=== PATIENT | male | born 2000 | race Caucasian/White ===

== ENCOUNTER 2022-10-03 11:58 | Inpatient (IN) ==
--- NOTE | 2022-10-03 12:46 | Emergency Department Note ---
Impression & Plan Depression, Self-harming behavior ED Provider Note Provider: Sanjeev Ortega MD DATE OF SERVICE: 10/03/2022 CHIEF COMPLAINT: Cutting, depression HISTORY OF PRESENT ILLNESS: Patient is a 22-year-old gentleman presenting here today for evaluation of depression and self-harm. Patient with a distant history when he was a teenager of ADHD or ADD in counseling until 15. No prior suicide attempts. Evidently has been under increased stress and a polyamorous relationship and there is some tension with his fiance who feels she is trapped as he is very dependent on him. He states he feels depressed and maybe a little anxious. Denies when to harm others. 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 Denies really wanting to harm himself. His male partner Renetta frederick received a message from him when he is working about this and talked him down according to him. Did contact the police and suicide hotline last night. Renetta some to come here for evaluation today. Not sleeping the best he is in the associate light. Denies drug or alcohol issues. 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 NECK: Trachea midline. ENT: Mucous membranes pink and moist. LUNGS: Airway patent. No retractions or tachypnea SKIN: Acyanotic, warm, dry EXTREMITIES: Without swelling, tenderness or deformity except for approximately 20 linear striations in the posterior aspect of the left forearm superficial in nature without any foreign body or significant bleeding or redness. Soft compartment. Intact distal gross sensation of the left hand. NEUROLOGICAL: No focal deficits. No aphasia. No facial droop or slurred speech. Ambulatory. Psych: Some flattened affect. Poor eye contact. Relays depression. Denies any plan but does not really want to be around. Denies any wishes to harm others or hallucinations. Not responding to external stimuli. Patient's laboratory studies reviewed. Differential includes Mood disorder, infection, hypoglycemia, electrolyte abnormalities, cardiac sources, intracerebral event, toxicologic, trauma, neurologic, as well as other pathologies. IMPRESSION/MEDICAL DECISION MAKING: Patient not currently in outpatient treatment outpatient meds with depression issues. Evidently last night utilize a pocket knife to make some superficial cuts on his left forearm. Tetanus is up-to-date according him. No evidence of infection. No evidence compartment syndrome. No significant depth and does not require closure. Basic blood work obtained here. Seen with case management. Denies any HI or hallucinations. Feels very depressed. Not necessarily see a plan or involuntary grounds but case management discussion with him he wished to pursue voluntary placement for his symptoms. No history of cutting reported. Denies taking thing else to harm himself. Case management made referrals for inpatient treatment to [address] [place] [address] here. DIAGNOSIS: Depression, self-harm DISPOSITION: Signed out pending evaluation of [facility]. for possible voluntary inpatient treatment but do not see any involuntary grounds and if declined could consider safety planning for discharge. Dr. Matamoros aware. Past Med/Surg History Medical History No acute medical problems Surgical History No significant past surgical history Family History Other No significant family history Social History Smoking Status: Never smoker Tobacco Type: Cigarettes Hx Alcohol Use: No Preferred Language: Zambian Feels Safe at Home: Yes Gender Identity: Male Allergies Allergies Allergy/AdvReac Type Severity Reaction Status Date / Time No Known Allergies Allergy Verified 04/14/22 02:39 Home Meds Home Medications Medication Instructions Recorded Confirmed No Known Home Medications 04/14/22 10/03/22 Results & Data (ED) Vital Signs Vital Signs - 24 hr 10/03/22 12:02 10/03/22 15:45 Temperature 36.4 C L Temperature Source Temporal Artery Scan Pulse Rate 73 Pulse Rate [Right Finger] 76 Pulse Rhythm Regular Pulse Rhythm [Right Finger] Regular Pulse Strength Normal Pulse Strength [Right Finger] Normal Respiratory Rate 20 18 Respiratory Effort / Characteristics Non-Labored Spontaneous Non-Labored Respiratory Depth Normal Normal Respiratory Pattern Regular Regular Blood Pressure 134/93 Blood Pressure [Right Arm] 128/86 Blood Pressure Mean 106 Blood Pressure Mean [Right Arm] 100 Blood Pressure Position Sitting Blood Pressure Position [Right Arm] Lying Pulse Oximetry 100 100 Oxygen Delivery Method Room Air Room Air Sepsis Recent Fever Within 48 Hours No Sepsis New/Unexplained Change in Mental Status No Sepsis Action Taken by Nursing No Action Required Laboratory Data 10/03/22 12:30 10/03/22 12:30 Lab Results 10/03/22 10/03/22 10/03/22 Range/Units 12:30 12:30 12:30 WBC Cancelled RBC Cancelled Hgb Cancelled Hct Cancelled MCV Cancelled MCH Cancelled MCHC Cancelled RDW Std Deviation Cancelled RDW Coeff of Florentin Cancelled Plt Count Cancelled MPV Cancelled Immature Gran % (Auto) Cancelled Neut % (Auto) Cancelled Lymph % (Auto) Cancelled Johnston % (Auto) Cancelled Eos % (Auto) Cancelled Baso % (Auto) Cancelled Neut # (Auto) Cancelled Lymph # (Auto) Cancelled Johnston # (Auto) Cancelled Eos # (Auto) Cancelled Baso # (Auto) Cancelled Immature Gran # (Auto) Cancelled Absolute Nucleated RBC Cancelled Nucleated RBC % (auto) Cancelled Neutrophils % (Manual) Cancelled Band Neutrophils % Cancelled Lymphocytes % (Manual) Cancelled Prolymphocyte % Cancelled Reactive Lymphs % (Man) Cancelled Monocytes % (Manual) Cancelled Eosinophils % (Manual) Cancelled Basophils % (Manual) Cancelled Metamyelocytes % (Man) Cancelled Myelocytes % (Man) Cancelled Promyelocytes % (Man) Cancelled Blast Cells % (Manual) Cancelled Plasma Cell % (Manual) Cancelled Other Cells % Cancelled Nucleated RBC % Cancelled Neutrophils # (Manual) Cancelled Band Neutrophils # Cancelled Total Absolute Neuts Cancelled Lymphocytes # (Manual) Cancelled Prolymphocyte # Cancelled Reactive Lymphs # Cancelled Total Abs Lymphocytes Cancelled Monocytes # (Manual) Cancelled Eosinophils # (Manual) Cancelled Basophils # (Manual) Cancelled Metamyelocytes # (Man) Cancelled Myelocytes # (Manual) Cancelled Promyelocytes # (Man) Cancelled Blast Cells # (Man) Cancelled Plasma Cell # (Manual) Cancelled Other Cells # Cancelled Nucleated RBCs # (Man) Cancelled Hypersegmented Neuts Cancelled Hyposegmented Neuts Cancelled Hypogranular Neuts Cancelled Large Granular Lymphs Cancelled # Lrg Granular Lymphs Cancelled Hairy Cells Cancelled Smudge Cells Cancelled Toxic Granulation Cancelled Toxic Vacuolation Cancelled Dohle Bodies Cancelled Juice Rods Cancelled Platelet Estimate Cancelled Hypogranular Platelets Cancelled Giant Platelets Cancelled Platelet Satelliting Cancelled RBC Morphology Cancelled Polychromasia Cancelled Hypochromasia Cancelled Poikilocytosis Cancelled Basophilic Stippling Cancelled Anisocytosis Cancelled Microcytosis Cancelled Macrocytosis Cancelled Spherocytes Cancelled Pappenheimer Bodies Cancelled Sickle Cells Cancelled Target Cells Cancelled Tear Drop Cells Cancelled Ovalocytes Cancelled Stomatocytes Cancelled Penaloza-Modale Bodies Cancelled Echinocytes Cancelled Acanthocytes (Spur) Cancelled Rouleaux Cancelled RBC Agglutinates Cancelled Schistocytes Cancelled Sezary Cell Cancelled Sodium 138 (136-145) mmol/L Potassium 4.3 (3.5-5.1) mmol/L Chloride 102 (98-107) mmol/L Carbon Dioxide 29 (21-32) mmol/L Anion Gap 7 (3-11) BUN 18 (6-23) mg/dl Creatinine 1.32 (0.6-1.4) mg/dl Est Cr Clr Drug Dosing 91.0 ml/min Est GFR ( Amer) 87.5 ml/min Est GFR (Non-Af Amer) 75.5 ml/min BUN/Creatinine Ratio 13.6 (10-20) Glucose 67 L (70-99(Fasting)) mg/dl Calcium 9.4 (8.6-10.3) mg/dl Total Bilirubin 1.4 H (0.2-1.0) mg/dl AST 24 (13-39) U/L ALT 24 (7-52) U/L Alkaline Phosphatase 54 (34-104) U/L Total Protein 7.9 (6.0-8.3) gm/dl Albumin 4.8 (3.4-5.0) gm/dl Globulin 3.1 (2.5-4.0) gm/dl Albumin/Globulin Ratio 1.5 (0.9-2) TSH 8.114 H (0.300-4.500) uIu/ml Free T4 0.90 (0.61-1.60) ng/dl Urine Color Urine Appearance (Clear) Urine pH (4.5-7.5) Ur Specific Monroe (1.000-1.030) Urine Protein (Negative) Urine Glucose (UA) (Negative) Urine Ketones (Negative) Urine Blood (Negative) Urine Nitrite (Negative) Urine Bilirubin (Negative) Urine Urobilinogen (Negative) Ur Leukocyte Esterase (Negative) Salicylates (3.0-30) mg/dl Urine Opiates Screen (Neg) Ur Methadone, Qual (Neg) Acetaminophen (10-30) ug/ml Urine Barbiturates (Neg) Ur Phencyclidine (PCP) (Neg) U Amphetamin/Meth Scrn (Neg) MDMA (Ecstasy) Screen (Neg) U Benzodiazepines Scrn (Neg) Ur Cocaine Metabolite (Neg) U Marijuana (THC) Screen (Neg) Ethyl Alcohol mg/dL (<10.0) mg/dl SARS-CoV-2, RNA, NAAT (NEGATIVE) Blood Parasites ID Cancelled 10/03/22 10/03/22 10/03/22 Range/Units 12:30 12:30 12:33 WBC RBC Hgb Hct MCV MCH MCHC RDW Std Deviation RDW Coeff of Florentin Plt Count MPV Immature Gran % (Auto) Neut % (Auto) Lymph % (Auto) Johnston % (Auto) Eos % (Auto) Baso % (Auto) Neut # (Auto) Lymph # (Auto) Johnston # (Auto) Eos # (Auto) Baso # (Auto) Immature Gran # (Auto) Absolute Nucleated RBC Nucleated RBC % (auto) Neutrophils % (Manual) Band Neutrophils % Lymphocytes % (Manual) Prolymphocyte % Reactive Lymphs % (Man) Monocytes % (Manual) Eosinophils % (Manual) Basophils % (Manual) Metamyelocytes % (Man) Myelocytes % (Man) Promyelocytes % (Man) Blast Cells % (Manual) Plasma Cell % (Manual) Other Cells % Nucleated RBC % Neutrophils # (Manual) Band Neutrophils # Total Absolute Neuts Lymphocytes # (Manual) Prolymphocyte # Reactive Lymphs # Total Abs Lymphocytes Monocytes # (Manual) Eosinophils # (Manual) Basophils # (Manual) Metamyelocytes # (Man) Myelocytes # (Manual) Promyelocytes # (Man) Blast Cells # (Man) Plasma Cell # (Manual) Other Cells # Nucleated RBCs # (Man) Hypersegmented Neuts Hyposegmented Neuts Hypogranular Neuts Large Granular Lymphs # Lrg Granular Lymphs Hairy Cells Smudge Cells Toxic Granulation Toxic Vacuolation Dohle Bodies Juice Rods Platelet Estimate Hypogranular Platelets Giant Platelets Platelet Satelliting RBC Morphology Polychromasia Hypochromasia Poikilocytosis Basophilic Stippling Anisocytosis Microcytosis Macrocytosis Spherocytes Pappenheimer Bodies Sickle Cells Target Cells Tear Drop Cells Ovalocytes Stomatocytes Penaloza-Modale Bodies Echinocytes Acanthocytes (Spur) Rouleaux RBC Agglutinates Schistocytes Sezary Cell Sodium (136-145) mmol/L Potassium (3.5-5.1) mmol/L Chloride (98-107) mmol/L Carbon Dioxide (21-32) mmol/L Anion Gap (3-11) BUN (6-23) mg/dl Creatinine (0.6-1.4) mg/dl Est Cr Clr Drug Dosing ml/min Est GFR ( Amer) ml/min Est GFR (Non-Af Amer) ml/min BUN/Creatinine Ratio (10-20) Glucose (70-99(Fasting)) mg/dl Calcium (8.6-10.3) mg/dl Total Bilirubin (0.2-1.0) mg/dl AST (13-39) U/L ALT (7-52) U/L Alkaline Phosphatase (34-104) U/L Total Protein (6.0-8.3) gm/dl Albumin (3.4-5.0) gm/dl Globulin (2.5-4.0) gm/dl Albumin/Globulin Ratio (0.9-2) TSH (0.300-4.500) uIu/ml Free T4 (0.61-1.60) ng/dl Urine Color Urine Appearance (Clear) Urine pH (4.5-7.5) Ur Specific Monroe (1.000-1.030) Urine Protein (Negative) Urine Glucose (UA) (Negative) Urine Ketones (Negative) Urine Blood (Negative) Urine Nitrite (Negative) Urine Bilirubin (Negative) Urine Urobilinogen (Negative) Ur Leukocyte Esterase (Negative) Salicylates < 3.0 L (3.0-30) mg/dl Urine Opiates Screen (Neg) Ur Methadone, Qual (Neg) Acetaminophen < 3 L (10-30) ug/ml Urine Barbiturates (Neg) Ur Phencyclidine (PCP) (Neg) U Amphetamin/Meth Scrn (Neg) MDMA (Ecstasy) Screen (Neg) U Benzodiazepines Scrn (Neg) Ur Cocaine Metabolite (Neg) U Marijuana (THC) Screen (Neg) Ethyl Alcohol mg/dL < 10.0 (<10.0) mg/dl SARS-CoV-2, RNA, NAAT NEGATIVE (NEGATIVE) Blood Parasites ID 10/03/22 10/03/22 10/03/22 Range/Units 14:04 Unknown Unknown WBC 7.84 RBC 5.67 Hgb 16.8 Hct 48.1 MCV 84.8 MCH 29.6 MCHC 34.9 RDW Std Deviation 36.7 RDW Coeff of Florentin 12.1 Plt Count 196 MPV 11.6 Immature Gran % (Auto) 0.8 Neut % (Auto) 63.2 Lymph % (Auto) 26.5 Johnston % (Auto) 7.7 Eos % (Auto) 1.4 Baso % (Auto) 0.4 Neut # (Auto) 4.96 Lymph # (Auto) 2.08 Johnston # (Auto) 0.60 H Eos # (Auto) 0.11 Baso # (Auto) 0.03 Immature Gran # (Auto) 0.06 Absolute Nucleated RBC Nucleated RBC % (auto) Neutrophils % (Manual) Band Neutrophils % Lymphocytes % (Manual) Prolymphocyte % Reactive Lymphs % (Man) Monocytes % (Manual) Eosinophils % (Manual) Basophils % (Manual) Metamyelocytes % (Man) Myelocytes % (Man) Promyelocytes % (Man) Blast Cells % (Manual) Plasma Cell % (Manual) Other Cells % Nucleated RBC % Neutrophils # (Manual) Band Neutrophils # Total Absolute Neuts Lymphocytes # (Manual) Prolymphocyte # Reactive Lymphs # Total Abs Lymphocytes Monocytes # (Manual) Eosinophils # (Manual) Basophils # (Manual) Metamyelocytes # (Man) Myelocytes # (Manual) Promyelocytes # (Man) Blast Cells # (Man) Plasma Cell # (Manual) Other Cells # Nucleated RBCs # (Man) Hypersegmented Neuts Hyposegmented Neuts Hypogranular Neuts Large Granular Lymphs # Lrg Granular Lymphs Hairy Cells Smudge Cells Toxic Granulation Toxic Vacuolation Dohle Bodies Juice Rods Platelet Estimate Hypogranular Platelets Giant Platelets Platelet Satelliting RBC Morphology Polychromasia Hypochromasia Poikilocytosis Basophilic Stippling Anisocytosis Microcytosis Macrocytosis Spherocytes Pappenheimer Bodies Sickle Cells Target Cells Tear Drop Cells Ovalocytes Stomatocytes Penaloza-Modale Bodies Echinocytes Acanthocytes (Spur) Rouleaux RBC Agglutinates Schistocytes Sezary Cell Sodium (136-145) mmol/L Potassium (3.5-5.1) mmol/L Chloride (98-107) mmol/L Carbon Dioxide (21-32) mmol/L Anion Gap (3-11) BUN (6-23) mg/dl Creatinine (0.6-1.4) mg/dl Est Cr Clr Drug Dosing ml/min Est GFR ( Amer) ml/min Est GFR (Non-Af Amer) ml/min BUN/Creatinine Ratio (10-20) Glucose (70-99(Fasting)) mg/dl Calcium (8.6-10.3) mg/dl Total Bilirubin (0.2-1.0) mg/dl AST (13-39) U/L ALT (7-52) U/L Alkaline Phosphatase (34-104) U/L Total Protein (6.0-8.3) gm/dl Albumin (3.4-5.0) gm/dl Globulin (2.5-4.0) gm/dl Albumin/Globulin Ratio (0.9-2) TSH (0.300-4.500) uIu/ml Free T4 (0.61-1.60) ng/dl Urine Color Dark Yellow Urine Appearance Clear (Clear) Urine pH 6.0 (4.5-7.5) Ur Specific Monroe 1.025 (1.000-1.030) Urine Protein Negative (Negative) Urine Glucose (UA) Negative (Negative) Urine Ketones Trace H (Negative) Urine Blood Negative (Negative) Urine Nitrite Negative (Negative) Urine Bilirubin Negative (Negative) Urine Urobilinogen Negative (Negative) Ur Leukocyte Esterase Negative (Negative) Salicylates (3.0-30) mg/dl Urine Opiates Screen Neg (Neg) Ur Methadone, Qual Neg (Neg) Acetaminophen (10-30) ug/ml Urine Barbiturates Neg (Neg) Ur Phencyclidine (PCP) Neg (Neg) U Amphetamin/Meth Scrn Neg (Neg) MDMA (Ecstasy) Screen Neg (Neg) U Benzodiazepines Scrn Neg (Neg) Ur Cocaine Metabolite Neg (Neg) U Marijuana (THC) Screen Neg (Neg) Ethyl Alcohol mg/dL (<10.0) mg/dl SARS-CoV-2, RNA, NAAT (NEGATIVE) Blood Parasites ID Discharge Plan Visit Data Chief Complaint: Mental Health Evaluation Stated Complaint: MENTAL ISSUES, SELF HARM ED Provider: Josh Matamoros Discharge Problem: Depression, Self-harming behavior Forms Stand Alone Forms: [facility], Suicide Prevention Resources Prescriptions Prescriptions: No Action No Known Home Medications Referrals Referrals: PCP,NO [Primary Care Provider] -
[2022-10-03 13:11] LABS: Albumin Level 4.8 gm/dl (3.4-5.0); Bilirubin,Total 1.4 mg/dl (0.2-1.0); Calcium 9.4 mg/dl (8.6-10.3); Potassium 4.3 mmol/L (3.5-5.1)
[2022-10-03 13:17] LABS: Acetaminophen < 3 ug/ml (10-30); Albumin Globulin Ratio 1.5 (0.9-2); BUN Creatinine Ratio 13.6 (10-20); Est GFR (African American) 87.5 ml/min; Est GFR (Non-African American) 75.5 ml/min; Globulin 3.1 gm/dl (2.5-4.0); Salicylate < 3.0 mg/dl (3.0-30); Total Protein 7.9 gm/dl (6.0-8.3)
[2022-10-03 13:30] LABS: Thyroid Stimulating Hormone 8.114 uIu/ml (0.300-4.500)
[2022-10-03 14:11] LABS: T4 Free Thyroxine 0.9 ng/dl (0.61-1.60)
[2022-10-03 14:32] LABS: Basophils # (auto) 0.03 K/uL (0-0.2); Basophils % (auto) 0.4 %; Eosinophils # (auto) 0.11 K/uL (0-0.50); Eosinophils % (auto) 1.4 %; Hematocrit (blood only) 48.1 % (42.0-52.0); Hemoglobin 16.8 g/dl (14.0-18.0); Immature Granulocytes # (auto) 0.06 K/uL (0.01-0.20); Immature Granulocytes % (auto) 0.8 %; Lymphocytes # (auto) 2.08 K/uL (1.2-3.4); Lymphocytes % (auto) 26.5 %; Mean Corpuscular Hemoglobin 29.6 pg (25.0-34.0); Mean Corpuscular Hgb Conc 34.9 g/dL (32.0-36.0); Mean Corpuscular Volume 84.8 fL (80.0-100.0); Mean Platelet Volume 11.6 fL (9.4-12.4); Monocytes % (auto) 7.7 %; Neutrophils # (auto) 4.96 K/uL (1.40-6.50); Neutrophils % (auto) 63.2 %; Platelet Count 196 K/uL (130-400); RDW Coefficient of Variation 12.1 % (11.5-14.5); RDW Standard Deviation 36.7 fL (36.4-46.3); Red Blood Count 5.67 M/uL (4.70-6.10); White Blood Count 7.84 K/ul (4.8-10.8)
[2022-10-03 14:54] LABS: Appearance Urine Clear (Clear); Bilirubin Urine Negative (Negative); Blood Urine Negative (Negative); Color Urine Dark Yellow; Glucose Urine UA Negative (Negative); Ketones Urine Trace (Negative); Leukocyte Esterase Urine Negative (Negative); Nitrite Urine Negative (Negative); Protein Urine Negative (Negative); Specific Gravity Urine 1.025 (1.000-1.030); Urobilinogen Urine Negative (Negative)
[2022-10-03 16:40] LABS: Amphetamines+Metham, Urine Neg (Neg); Barbiturates, Urine Neg (Neg); Benzodiazepine, Urine Neg (Neg); Cocaine, Urine Neg (Neg); MDMA (Ecstacy), Urine Neg (Neg); Methadone, Urine Neg (Neg); Opiate, Urine Neg (Neg); Phencyclidine, Urine Neg (Neg)
--- NOTE | 2022-10-03 17:08 | Emergency Department Note ---
ED Visit Note I did receive signout from Dr. Ortega. The patient does present with depressed mood as well as superficial cutting to the upper extremity. Initially no current safety concerns and a voluntary 201. Patient is medically cleared referral pending. Patient was accepted for inpatient treatment. .
[2022-10-03] MEDS ORDERED: BISMUTH SUBSALICYLATE LIQD 236 ML PO PRN (19:09)
[2022-10-03] MEDS ORDERED: hydrOXYzine HCl 25 MG TAB PO PRN ×2 (19:09)
[2022-10-03] MEDS ORDERED: ALUMINUM/MAGNESIUM SUSP 30 ML UDC PO PRN (19:09)
[2022-10-03] MEDS ORDERED: MAGNESIUM HYDROXIDE SUSP 30 ML UDC PO PRN (19:09)
[2022-10-03] MEDS ORDERED: SODIUM CHLORIDE 0.65% NA SOLN 45 ML (OCEAN) PRN (19:09)
[2022-10-03] MEDS ORDERED: ACETAMINOPHEN 325 MG TAB PO PRN (19:09)
--- NOTE | 2022-10-04 11:43 | History & Physical ---
Date of Service October 04, 2022 Impression / Recommendations Impression 22 yo male with childhood hx of ADHD and autism traits presents with increase in depressive symptoms, intermittent SI, and recent self-harm via cutting. (1) Depression: Plan The patient was admitted to the [facility] ([facility] mental health unit) on q15 min checks (behavioral with suicide precautions) for safety. The patient will participate in group, recreational, and milieu therapies and will be offered additional individual and family sessions as clinically appropriate. I do not recall him being on any antidepressants in the past, I suspect he took clonidine or trazodone for sleep, regardless no meds for several years. He is most interested in medication to regulate sleep and will be scheduled Vistaril 50 mg this hs with prn. 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 Chief Complaint "Well I get lonely, I cut myself, and at work I'd just had it". History of Present Illness Gurdeep was actually my outpatient for a significant number of years at [facility], last seen probably 2016. Since that time he has completed high school, been working at [employer] and for past year living with his fiance and her mother. He also reported to the ED that the couple is in a polyamorous relationship but today was more on her excessive work hours. He's been feeling more depressed for at least a few weeks. He intermittently engages in cutting to relieve stress when upset. He denies that the approximately 20 superficial cuts on the back of his left forearm were related to SI or an attempt. The cutting occured on 10/02/22 and then he went to work the following night. 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 A friend took him to the ED following his shift. He was admitted for safety and monitoring. He is interested in starting treatment and getting insurance. 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 Generally eats 1 meal a day at work as "it's free" and doesn't always feel comfortable taking food at fiance's house. Concentration seems baseline. Past Psychiatric History Current Psychiatric Diagnosis: aspergers, ADHD Outpatient Services: [facility] and [facility] as a minor Previous Psych Admissions: none Do You Have Access To A Gun?: No History of Previous Suicide Attempt: No Past Medication Trials: Concerta, possible sleep med Allergies Allergy/AdvReac Type Severity Reaction Status Date / Time No Known Allergies Allergy Verified 04/14/22 02:39 Home Medications Medication Instructions Recorded Confirmed Type No Known Home Medications 04/14/22 10/03/22 History Family History Family History of: None Family Mental Health History Comment: states brother is depressed but he does not have a diagnosis Alcohol History Hx of Alcohol Use Over the Past 12 Months: Yes (Occasionally) AUDIT Total Score: 2 Smoking Use Have You Smoked or Used Tobacco Products in the Last 30 Days: Yes tobacco type: cigarettes and smokeless tobacco Smoking Status: Light tobacco smoker Substance History Hx of Prescription Med Misuse Over the Past 12 Months: No Hx of Over the Counter Med Misuse Over the Past 12 Months: No Hx of Inhalent Misuse Over the Past 12 Months: No Hx of Organic Substance Use Over the Past 12 Months: No Hx of Illegal Substances/Street Drug Use Over Past 12 Months: No Problems as a Result of Past Substance Use: None Identified Personal History Living Arrangements: Home Childhood: grew up in [place] with parents and younger sister and bro. Highest Grade Completed: High School Graduate Employment Status: [employer] Worker Employed Marital Status: Living w/ Signif. Other Number Of Children: 0 Beliefs That Will Affect Care: None Current Legal Problems: No Hx Legal Problems: No Patient History Medical History No acute medical problems Surgical History No significant past surgical history Family History Other No significant family history Social History Smoking Status: Light tobacco smoker Tobacco Type: Cigarettes Hx Alcohol Use: No Preferred Language: Mauritian Communication Ability: Effective Site Safety Representative Required: No Beliefs That Will Affect Care: None Feels Safe at Home: Yes Gender Identity: Male Assistive Devices: Glasses Review of Systems Review of Systems: All systems reviewed & are unremarkable except as noted in HPI & below Physical Exam Psychiatric: Orientation: alert and oriented x 3 Apperance: appropriately dressed and appropriately groomed Eye Contact: good eye contact Motor Behavior: steady gait and station and no abnormal motor movements Speech: normal rate/rhythm/volume of speech Affect: + depressed affect Mood: + depressed mood Thought Process: goal directed thought process Thought Content: reality based without delusions Suicidal Thoughts: denies suicidal thoughts Homicidal Thoughts: denies homicidal thoughts Hallucinations: no auditory hallucinations and no visual hallucinations Cognition: recent memory grossly intact and language grossly intact Estimated Intelligence: average estimated intelligence Insight: + limited insight Judgment: + limited judgement Vital Signs (Past 24 Hours): Last Vital Signs Temp 36.7 C 10/04/22 06:34 Pulse 76 10/04/22 06:34 Resp 16 10/04/22 06:34 BP 119/75 10/04/22 06:34 Pulse Ox 100 10/03/22 19:11 O2 Del Method Room Air 10/03/22 19:11 Results & Data ([facility]) Laboratory Results Laboratory Results - last 24 hr 10/03/22 10/03/22 10/03/22 12:30 12:30 12:30 WBC Cancelled RBC Cancelled Hgb Cancelled Hct Cancelled MCV Cancelled MCH Cancelled MCHC Cancelled RDW Std Deviation Cancelled RDW Coeff of Florentin Cancelled Plt Count Cancelled MPV Cancelled Immature Gran % (Auto) Cancelled Neut % (Auto) Cancelled Lymph % (Auto) Cancelled Creek % (Auto) Cancelled Eos % (Auto) Cancelled Baso % (Auto) Cancelled Neut # (Auto) Cancelled Lymph # (Auto) Cancelled Creek # (Auto) Cancelled Eos # (Auto) Cancelled Baso # (Auto) Cancelled Immature Gran # (Auto) Cancelled Absolute Nucleated RBC Cancelled Nucleated RBC % (auto) Cancelled Neutrophils % (Manual) Cancelled Band Neutrophils % Cancelled Lymphocytes % (Manual) Cancelled Prolymphocyte % Cancelled Reactive Lymphs % (Man) Cancelled Monocytes % (Manual) Cancelled Eosinophils % (Manual) Cancelled Basophils % (Manual) Cancelled Metamyelocytes % (Man) Cancelled Myelocytes % (Man) Cancelled Promyelocytes % (Man) Cancelled Blast Cells % (Manual) Cancelled Plasma Cell % (Manual) Cancelled Other Cells % Cancelled Nucleated RBC % Cancelled Neutrophils # (Manual) Cancelled Band Neutrophils # Cancelled Total Absolute Neuts Cancelled Lymphocytes # (Manual) Cancelled Prolymphocyte # Cancelled Reactive Lymphs # Cancelled Total Abs Lymphocytes Cancelled Monocytes # (Manual) Cancelled Eosinophils # (Manual) Cancelled Basophils # (Manual) Cancelled Metamyelocytes # (Man) Cancelled Myelocytes # (Manual) Cancelled Promyelocytes # (Man) Cancelled Blast Cells # (Man) Cancelled Plasma Cell # (Manual) Cancelled Other Cells # Cancelled Nucleated RBCs # (Man) Cancelled Hypersegmented Neuts Cancelled Hyposegmented Neuts Cancelled Hypogranular Neuts Cancelled Large Granular Lymphs Cancelled # Lrg Granular Lymphs Cancelled Hairy Cells Cancelled Smudge Cells Cancelled Toxic Granulation Cancelled Toxic Vacuolation Cancelled Dohle Bodies Cancelled Juice Rods Cancelled Platelet Estimate Cancelled Hypogranular Platelets Cancelled Giant Platelets Cancelled Platelet Satelliting Cancelled RBC Morphology Cancelled Polychromasia Cancelled Hypochromasia Cancelled Poikilocytosis Cancelled Basophilic Stippling Cancelled Anisocytosis Cancelled Microcytosis Cancelled Macrocytosis Cancelled Spherocytes Cancelled Pappenheimer Bodies Cancelled Sickle Cells Cancelled Target Cells Cancelled Tear Drop Cells Cancelled Ovalocytes Cancelled Stomatocytes Cancelled [place] Bodies Cancelled Echinocytes Cancelled Acanthocytes (Spur) Cancelled Rouleaux Cancelled RBC Agglutinates Cancelled Schistocytes Cancelled Sezary Cell Cancelled Sodium 138 Potassium 4.3 Chloride 102 Carbon Dioxide 29 Anion Gap 7 BUN 18 Creatinine 1.32 Est Cr Clr Drug Dosing 91.0 Est GFR ( Amer) 87.5 Est GFR (Non-Af Amer) 75.5 BUN/Creatinine Ratio 13.6 Glucose 67 L Calcium 9.4 Total Bilirubin 1.4 H AST 24 ALT 24 Alkaline Phosphatase 54 Total Protein 7.9 Albumin 4.8 Globulin 3.1 Albumin/Globulin Ratio 1.5 TSH 8.114 H Free T4 0.90 Urine Color Urine Appearance Urine pH Ur Specific [place] Urine Protein Urine Glucose (UA) Urine Ketones Urine Blood Urine Nitrite Urine Bilirubin Urine Urobilinogen Ur Leukocyte Esterase Salicylates Urine Opiates Screen Ur Methadone, Qual Acetaminophen Urine Barbiturates Ur Phencyclidine (PCP) U Amphetamin/Meth Scrn MDMA (Ecstasy) Screen U Benzodiazepines Scrn Ur Cocaine Metabolite U Marijuana (THC) Screen Ethyl Alcohol mg/dL SARS-CoV-2, RNA, NAAT Blood Parasites ID Cancelled 10/03/22 10/03/22 10/03/22 12:30 12:30 12:33 WBC RBC Hgb Hct MCV MCH MCHC RDW Std Deviation RDW Coeff of Florentin Plt Count MPV Immature Gran % (Auto) Neut % (Auto) Lymph % (Auto) Creek % (Auto) Eos % (Auto) Baso % (Auto) Neut # (Auto) Lymph # (Auto) Creek # (Auto) Eos # (Auto) Baso # (Auto) Immature Gran # (Auto) Absolute Nucleated RBC Nucleated RBC % (auto) Neutrophils % (Manual) Band Neutrophils % Lymphocytes % (Manual) Prolymphocyte % Reactive Lymphs % (Man) Monocytes % (Manual) Eosinophils % (Manual) Basophils % (Manual) Metamyelocytes % (Man) Myelocytes % (Man) Promyelocytes % (Man) Blast Cells % (Manual) Plasma Cell % (Manual) Other Cells % Nucleated RBC % Neutrophils # (Manual) Band Neutrophils # Total Absolute Neuts Lymphocytes # (Manual) Prolymphocyte # Reactive Lymphs # Total Abs Lymphocytes Monocytes # (Manual) Eosinophils # (Manual) Basophils # (Manual) Metamyelocytes # (Man) Myelocytes # (Manual) Promyelocytes # (Man) Blast Cells # (Man) Plasma Cell # (Manual) Other Cells # Nucleated RBCs # (Man) Hypersegmented Neuts Hyposegmented Neuts Hypogranular Neuts Large Granular Lymphs # Lrg Granular Lymphs Hairy Cells Smudge Cells Toxic Granulation Toxic Vacuolation Dohle Bodies Juice Rods Platelet Estimate Hypogranular Platelets Giant Platelets Platelet Satelliting RBC Morphology Polychromasia Hypochromasia Poikilocytosis Basophilic Stippling Anisocytosis Microcytosis Macrocytosis Spherocytes Pappenheimer Bodies Sickle Cells Target Cells Tear Drop Cells Ovalocytes Stomatocytes [place] Bodies Echinocytes Acanthocytes (Spur) Rouleaux RBC Agglutinates Schistocytes Sezary Cell Sodium Potassium Chloride Carbon Dioxide Anion Gap BUN Creatinine Est Cr Clr Drug Dosing Est GFR ( Amer) Est GFR (Non-Af Amer) BUN/Creatinine Ratio Glucose Calcium Total Bilirubin AST ALT Alkaline Phosphatase Total Protein Albumin Globulin Albumin/Globulin Ratio TSH Free T4 Urine Color Urine Appearance Urine pH Ur Specific [place] Urine Protein Urine Glucose (UA) Urine Ketones Urine Blood Urine Nitrite Urine Bilirubin Urine Urobilinogen Ur Leukocyte Esterase Salicylates < 3.0 L Urine Opiates Screen Ur Methadone, Qual Acetaminophen < 3 L Urine Barbiturates Ur Phencyclidine (PCP) U Amphetamin/Meth Scrn MDMA (Ecstasy) Screen U Benzodiazepines Scrn Ur Cocaine Metabolite U Marijuana (THC) Screen Ethyl Alcohol mg/dL < 10.0 SARS-CoV-2, RNA, NAAT NEGATIVE Blood Parasites ID 10/03/22 10/03/22 10/03/22 14:04 Unknown Unknown WBC 7.84 RBC 5.67 Hgb 16.8 Hct 48.1 MCV 84.8 MCH 29.6 MCHC 34.9 RDW Std Deviation 36.7 RDW Coeff of Florentin 12.1 Plt Count 196 MPV 11.6 Immature Gran % (Auto) 0.8 Neut % (Auto) 63.2 Lymph % (Auto) 26.5 Creek % (Auto) 7.7 Eos % (Auto) 1.4 Baso % (Auto) 0.4 Neut # (Auto) 4.96 Lymph # (Auto) 2.08 Creek # (Auto) 0.60 H Eos # (Auto) 0.11 Baso # (Auto) 0.03 Immature Gran # (Auto) 0.06 Absolute Nucleated RBC Nucleated RBC % (auto) Neutrophils % (Manual) Band Neutrophils % Lymphocytes % (Manual) Prolymphocyte % Reactive Lymphs % (Man) Monocytes % (Manual) Eosinophils % (Manual) Basophils % (Manual) Metamyelocytes % (Man) Myelocytes % (Man) Promyelocytes % (Man) Blast Cells % (Manual) Plasma Cell % (Manual) Other Cells % Nucleated RBC % Neutrophils # (Manual) Band Neutrophils # Total Absolute Neuts Lymphocytes # (Manual) Prolymphocyte # Reactive Lymphs # Total Abs Lymphocytes Monocytes # (Manual) Eosinophils # (Manual) Basophils # (Manual) Metamyelocytes # (Man) Myelocytes # (Manual) Promyelocytes # (Man) Blast Cells # (Man) Plasma Cell # (Manual) Other Cells # Nucleated RBCs # (Man) Hypersegmented Neuts Hyposegmented Neuts Hypogranular Neuts Large Granular Lymphs # Lrg Granular Lymphs Hairy Cells Smudge Cells Toxic Granulation Toxic Vacuolation Dohle Bodies Juice Rods Platelet Estimate Hypogranular Platelets Giant Platelets Platelet Satelliting RBC Morphology Polychromasia Hypochromasia Poikilocytosis Basophilic Stippling Anisocytosis Microcytosis Macrocytosis Spherocytes Pappenheimer Bodies Sickle Cells Target Cells Tear Drop Cells Ovalocytes Stomatocytes [place] Bodies Echinocytes Acanthocytes (Spur) Rouleaux RBC Agglutinates Schistocytes Sezary Cell Sodium Potassium Chloride Carbon Dioxide Anion Gap BUN Creatinine Est Cr Clr Drug Dosing Est GFR ( Amer) Est GFR (Non-Af Amer) BUN/Creatinine Ratio Glucose Calcium Total Bilirubin AST ALT Alkaline Phosphatase Total Protein Albumin Globulin Albumin/Globulin Ratio TSH Free T4 Urine Color Dark Yellow Urine Appearance Clear Urine pH 6.0 Ur Specific [place] 1.025 Urine Protein Negative Urine Glucose (UA) Negative Urine Ketones Trace H Urine Blood Negative Urine Nitrite Negative Urine Bilirubin Negative Urine Urobilinogen Negative Ur Leukocyte Esterase Negative Salicylates Urine Opiates Screen Neg Ur Methadone, Qual Neg Acetaminophen Urine Barbiturates Neg Ur Phencyclidine (PCP) Neg U Amphetamin/Meth Scrn Neg MDMA (Ecstasy) Screen Neg U Benzodiazepines Scrn Neg Ur Cocaine Metabolite Neg U Marijuana (THC) Screen Neg Ethyl Alcohol mg/dL SARS-CoV-2, RNA, NAAT Blood Parasites ID Current Inpatient Medications Current Inpatient Medications: Current Inpatient Medications Acetaminophen (Acetaminophen 325 Mg Tab) 650 mg PO Q4H PRN PRN Reason: Headache or Minor Fever Stop: 11/02/22 19:08 Al Hydrox/Mg Hydrox/Simethicone (Aluminum/Magnesium Susp 30 Ml Udc) 30 ml PO Q4H PRN PRN Reason: GI Upset Stop: 11/02/22 19:08 Bismuth Subsalicylate (Bismuth Subsalicylate Liqd 236 Ml) 15 ml PO PRN PRN PRN Reason: Loose Stool Stop: 11/02/22 19:08 Hydroxyzine HCl (Hydroxyzine Hcl 25 Mg Tab) 50 mg PO HSZ PRN PRN Reason: Insomnia Stop: 11/02/22 19:08 Hydroxyzine HCl (Hydroxyzine Hcl 25 Mg Tab) 25 mg PO Q4H PRN PRN Reason: Anxiety Stop: 11/02/22 19:08 Magnesium Hydroxide (Magnesium Hydroxide Susp 30 Ml Udc) 30 ml PO DAILY PRN PRN Reason: Constipation Stop: 11/02/22 19:08 Sodium Chloride (Sodium Chloride 0.65% Na Soln 45 Ml ([place])) 1 - 2 sprays NA PRN PRN PRN Reason: Nasal Dryness/Congestion Stop: 11/02/22 19:08
[2022-10-04] MEDS: hydrOXYzine HCl 25 MG TAB PO SCH (21:19)
--- NOTE | 2022-10-05 10:38 | Psychiatric Progress Note ---
Date of Service October 05, 2022 Impression / Recommendations Impression 22 yo male with childhood hx of ADHD and autism traits presents with increase in depressive symptoms, intermittent SI, and recent self-harm via cutting. (1) Depression: Plan 10/04/22: continue Vistaril, needs family meeting for safety planning. 10/04/22: The patient was admitted to the [facility] ([facility] mental health unit) on q15 min checks (behavioral with suicide precautions) for safety. The patient will participate in group, recreational, and milieu therapies and will be offered additional individual and family sessions as clinically appropriate. I do not recall him being on any antidepressants in the past, I suspect he took clonidine or trazodone for sleep, regardless no meds for several years. He is most interested in medication to regulate sleep and will be scheduled Vistaril 50 mg this hs with prn. 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 Chief Complaint "I slept great" Review of Systems Sleep Information Total Hours of Sleep: 6.5 Meal Information Percent Meal Consumed - Breakfast: 100 Percent Meal Consumed - Lunch: 100 Percent Meal Consumed - Dinner: 100 Subjective Subjective Patient was seen & assessed and interval progress reviewed with nursing and social work. Slept well overnight. Appears brighter today. Interacting with peers. Fiance had good visit. Physical Exam Psychiatric Orientation: alert and oriented x 3 Apperance: appropriately dressed and appropriately groomed Eye Contact: good eye contact Motor Behavior: steady gait and station and no abnormal motor movements Speech: normal rate/rhythm/volume of speech Affect: euthymic affect Mood: + depressed mood (improving) Thought Process: goal directed thought process Thought Content: reality based without delusions Suicidal Thoughts: denies suicidal thoughts Homicidal Thoughts: denies homicidal thoughts Hallucinations: no auditory hallucinations and no visual hallucinations Cognition: recent memory grossly intact and language grossly intact Estimated Intelligence: average estimated intelligence Insight: + limited insight Judgment: + limited judgement Vital Signs (Past 24 Hours) Last Vital Signs Temp 36.5 C 10/05/22 06:36 Pulse 82 10/05/22 06:36 Resp 16 10/05/22 06:36 BP 112/76 10/05/22 06:36 Pulse Ox 100 10/03/22 19:11 O2 Del Method Room Air 10/03/22 19:11 Results & Data ([facility]) Current Inpatient Medications Current Inpatient Medications: Current Inpatient Medications Acetaminophen (Acetaminophen 325 Mg Tab) 650 mg PO Q4H PRN PRN Reason: Headache or Minor Fever Stop: 11/02/22 19:08 Al Hydrox/Mg Hydrox/Simethicone (Aluminum/Magnesium Susp 30 Ml Udc) 30 ml PO Q4H PRN PRN Reason: GI Upset Stop: 11/02/22 19:08 Bismuth Subsalicylate (Bismuth Subsalicylate Liqd 236 Ml) 15 ml PO PRN PRN PRN Reason: Loose Stool Stop: 11/02/22 19:08 Hydroxyzine HCl (Hydroxyzine Hcl 25 Mg Tab) 50 mg PO HSZ PRN PRN Reason: Insomnia Stop: 11/02/22 19:08 Hydroxyzine HCl (Hydroxyzine Hcl 25 Mg Tab) 25 mg PO Q4H PRN PRN Reason: Anxiety Stop: 11/02/22 19:08 Hydroxyzine HCl (Hydroxyzine Hcl 25 Mg Tab) 50 mg PO HS VIN Stop: 11/03/22 21:59 Last Admin: 10/04/22 21:19 Dose: 50 mg Magnesium Hydroxide (Magnesium Hydroxide Susp 30 Ml Udc) 30 ml PO DAILY PRN PRN Reason: Constipation Stop: 11/02/22 19:08 Sodium Chloride (Sodium Chloride 0.65% Na Soln 45 Ml ([place])) 1 - 2 sprays NA PRN PRN PRN Reason: Nasal Dryness/Congestion Stop: 11/02/22 19:08
[2022-10-05] MEDS: hydrOXYzine HCl 25 MG TAB PO SCH (21:16)
--- NOTE | 2022-10-06 09:16 | Discharge Summary ---
Date of Service October 06, 2022 History of Present Illness Gurdeep was actually my outpatient for a significant number of years at [facility], last seen probably 2016. Since that time he has completed high school, been working at [employer]) and for past year living with his starr and her mother. He also reported to the ED that the couple is in a polyamorous relationship but today was more on her excessive work hours. He's been feeling more depressed for at least a few weeks. He intermittently engages in cutting to relieve stress when upset. He denies that the approximately 20 superficial cuts on the back of his left forearm were related to SI or an attempt. The cutting occured on 10/02/22 and then he went to work the following night. It was busy and his food prep was being monitored by an missile inspector for the [employer] and he started to have SI. A friend took him to the ED following his shift. He was admitted for safety and monitoring. He is interested in starting treatment and getting insurance. 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 Generally eats 1 meal a day at work as "it's free" and doesn't always feel comfortable taking food at starr's house. Concentration seems baseline. Physical Exam Psychiatric See admission H&P and DOD assessment. Vital Signs (Past 24 Hours) Last Vital Signs Temp 36.5 C 10/06/22 07:55 Pulse 76 10/06/22 07:55 Resp 16 10/06/22 07:55 BP 125/84 10/06/22 07:55 Pulse Ox 100 10/06/22 07:55 O2 Del Method Room Air 10/03/22 19:11 Principal Diagnosis major depressive disorder Psychiatric Data See daily stay summary. In short, safety was maintained and the patient was cooperative with care. Medication changes included a trial of Vistaril and they tolerated this well. A family session was held with his starr and safety plan was completed prior to discharge. The patient iniiated the application for medical assistance and was referred to [facility] for aftercare. Day of Discharge Assessment Today the patient voices readiness for discharge. They note improvement in mood and deny thoughts to harm self or others. Thoughts remain organized and they are improved from admission. There is no evidence of psychosis. They agree to take mediations as prescribed and keep follow-up appointments. They are stable for discharge to outpatient level of care. Transition of Care Transition Of Care Record: was reviewed with the patient Advance Directives Advance Directives Information Provided: Yes Advance Directives: No Mental Health Advance Directive: No Advance Directives on File: No Living Will: No Power of Neuroradiologist: No Advance Directives Reason:: Declines as Mental Health Visit. Suicide Risk Level Suicide Risk Level Comments: Suicide risk at discharge is deemed low as the patient is no longer requiring 24 -hr monitoring, has a safety plan, and is free of suicidal ideation at discharge. 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) Stable Relationships: Yes Supportive Family: Yes Tobacco Cessation at Discharge Tobacco Cessation Medication Prescribed at Discharge: Not Applicable/Non-Smoker Total Time Total Time Spent: Greater Than 30 Minutes Total Time Includes: Examination of the patient, Discharge Planning and Medication Reconciliation Discharge Data Lab Results 10/03/22 10/03/22 10/03/22 12:30 12:30 12:30 WBC Cancelled RBC Cancelled Hgb Cancelled Hct Cancelled MCV Cancelled MCH Cancelled MCHC Cancelled RDW Std Deviation Cancelled RDW Coeff of Florentin Cancelled Plt Count Cancelled MPV Cancelled Immature Gran % (Auto) Cancelled Neut % (Auto) Cancelled Lymph % (Auto) Cancelled Harmon % (Auto) Cancelled Eos % (Auto) Cancelled Baso % (Auto) Cancelled Neut # (Auto) Cancelled Lymph # (Auto) Cancelled Harmon # (Auto) Cancelled Eos # (Auto) Cancelled Baso # (Auto) Cancelled Immature Gran # (Auto) Cancelled Absolute Nucleated RBC Cancelled Nucleated RBC % (auto) Cancelled Neutrophils % (Manual) Cancelled Band Neutrophils % Cancelled Lymphocytes % (Manual) Cancelled Prolymphocyte % Cancelled Reactive Lymphs % (Man) Cancelled Monocytes % (Manual) Cancelled Eosinophils % (Manual) Cancelled Basophils % (Manual) Cancelled Metamyelocytes % (Man) Cancelled Myelocytes % (Man) Cancelled Promyelocytes % (Man) Cancelled Blast Cells % (Manual) Cancelled Plasma Cell % (Manual) Cancelled Other Cells % Cancelled Nucleated RBC % Cancelled Neutrophils # (Manual) Cancelled Band Neutrophils # Cancelled Total Absolute Neuts Cancelled Lymphocytes # (Manual) Cancelled Prolymphocyte # Cancelled Reactive Lymphs # Cancelled Total Abs Lymphocytes Cancelled Monocytes # (Manual) Cancelled Eosinophils # (Manual) Cancelled Basophils # (Manual) Cancelled Metamyelocytes # (Man) Cancelled Myelocytes # (Manual) Cancelled Promyelocytes # (Man) Cancelled Blast Cells # (Man) Cancelled Plasma Cell # (Manual) Cancelled Other Cells # Cancelled Nucleated RBCs # (Man) Cancelled Hypersegmented Neuts Cancelled Hyposegmented Neuts Cancelled Hypogranular Neuts Cancelled Large Granular Lymphs Cancelled # Lrg Granular Lymphs Cancelled Hairy Cells Cancelled Smudge Cells Cancelled Toxic Granulation Cancelled Toxic Vacuolation Cancelled Dohle Bodies Cancelled Juice Rods Cancelled Platelet Estimate Cancelled Hypogranular Platelets Cancelled Giant Platelets Cancelled Platelet Satelliting Cancelled RBC Morphology Cancelled Polychromasia Cancelled Hypochromasia Cancelled Poikilocytosis Cancelled Basophilic Stippling Cancelled Anisocytosis Cancelled Microcytosis Cancelled Macrocytosis Cancelled Spherocytes Cancelled Pappenheimer Bodies Cancelled Sickle Cells Cancelled Target Cells Cancelled Tear Drop Cells Cancelled Ovalocytes Cancelled Stomatocytes Cancelled [place] Bodies Cancelled Echinocytes Cancelled Acanthocytes (Spur) Cancelled Rouleaux Cancelled RBC Agglutinates Cancelled Schistocytes Cancelled Sezary Cell Cancelled Sodium 138 Potassium 4.3 Chloride 102 Carbon Dioxide 29 Anion Gap 7 BUN 18 Creatinine 1.32 Est Cr Clr Drug Dosing 91.0 Est GFR ( Amer) 87.5 Est GFR (Non-Af Amer) 75.5 BUN/Creatinine Ratio 13.6 Glucose 67 L Calcium 9.4 Total Bilirubin 1.4 H AST 24 ALT 24 Alkaline Phosphatase 54 Total Protein 7.9 Albumin 4.8 Globulin 3.1 Albumin/Globulin Ratio 1.5 TSH 8.114 H Free T4 0.90 Urine Color Urine Appearance Urine pH Ur Specific [place] Urine Protein Urine Glucose (UA) Urine Ketones Urine Blood Urine Nitrite Urine Bilirubin Urine Urobilinogen Ur Leukocyte Esterase Salicylates Urine Opiates Screen Ur Methadone, Qual Acetaminophen Urine Barbiturates Ur Phencyclidine (PCP) U Amphetamin/Meth Scrn MDMA (Ecstasy) Screen U Benzodiazepines Scrn Ur Cocaine Metabolite U Marijuana (THC) Screen Ethyl Alcohol mg/dL SARS-CoV-2, RNA, NAAT Blood Parasites ID Cancelled 10/03/22 10/03/22 10/03/22 12:30 12:30 12:33 WBC RBC Hgb Hct MCV MCH MCHC RDW Std Deviation RDW Coeff of Florentin Plt Count MPV Immature Gran % (Auto) Neut % (Auto) Lymph % (Auto) Harmon % (Auto) Eos % (Auto) Baso % (Auto) Neut # (Auto) Lymph # (Auto) Harmon # (Auto) Eos # (Auto) Baso # (Auto) Immature Gran # (Auto) Absolute Nucleated RBC Nucleated RBC % (auto) Neutrophils % (Manual) Band Neutrophils % Lymphocytes % (Manual) Prolymphocyte % Reactive Lymphs % (Man) Monocytes % (Manual) Eosinophils % (Manual) Basophils % (Manual) Metamyelocytes % (Man) Myelocytes % (Man) Promyelocytes % (Man) Blast Cells % (Manual) Plasma Cell % (Manual) Other Cells % Nucleated RBC % Neutrophils # (Manual) Band Neutrophils # Total Absolute Neuts Lymphocytes # (Manual) Prolymphocyte # Reactive Lymphs # Total Abs Lymphocytes Monocytes # (Manual) Eosinophils # (Manual) Basophils # (Manual) Metamyelocytes # (Man) Myelocytes # (Manual) Promyelocytes # (Man) Blast Cells # (Man) Plasma Cell # (Manual) Other Cells # Nucleated RBCs # (Man) Hypersegmented Neuts Hyposegmented Neuts Hypogranular Neuts Large Granular Lymphs # Lrg Granular Lymphs Hairy Cells Smudge Cells Toxic Granulation Toxic Vacuolation Dohle Bodies Juice Rods Platelet Estimate Hypogranular Platelets Giant Platelets Platelet Satelliting RBC Morphology Polychromasia Hypochromasia Poikilocytosis Basophilic Stippling Anisocytosis Microcytosis Macrocytosis Spherocytes Pappenheimer Bodies Sickle Cells Target Cells Tear Drop Cells Ovalocytes Stomatocytes [place] Bodies Echinocytes Acanthocytes (Spur) Rouleaux RBC Agglutinates Schistocytes Sezary Cell Sodium Potassium Chloride Carbon Dioxide Anion Gap BUN Creatinine Est Cr Clr Drug Dosing Est GFR ( Amer) Est GFR (Non-Af Amer) BUN/Creatinine Ratio Glucose Calcium Total Bilirubin AST ALT Alkaline Phosphatase Total Protein Albumin Globulin Albumin/Globulin Ratio TSH Free T4 Urine Color Urine Appearance Urine pH Ur Specific [place] Urine Protein Urine Glucose (UA) Urine Ketones Urine Blood Urine Nitrite Urine Bilirubin Urine Urobilinogen Ur Leukocyte Esterase Salicylates < 3.0 L Urine Opiates Screen Ur Methadone, Qual Acetaminophen < 3 L Urine Barbiturates Ur Phencyclidine (PCP) U Amphetamin/Meth Scrn MDMA (Ecstasy) Screen U Benzodiazepines Scrn Ur Cocaine Metabolite U Marijuana (THC) Screen Ethyl Alcohol mg/dL < 10.0 SARS-CoV-2, RNA, NAAT NEGATIVE Blood Parasites ID 10/03/22 10/03/22 10/03/22 14:04 Unknown Unknown WBC 7.84 RBC 5.67 Hgb 16.8 Hct 48.1 MCV 84.8 MCH 29.6 MCHC 34.9 RDW Std Deviation 36.7 RDW Coeff of Florentin 12.1 Plt Count 196 MPV 11.6 Immature Gran % (Auto) 0.8 Neut % (Auto) 63.2 Lymph % (Auto) 26.5 Harmon % (Auto) 7.7 Eos % (Auto) 1.4 Baso % (Auto) 0.4 Neut # (Auto) 4.96 Lymph # (Auto) 2.08 Harmon # (Auto) 0.60 H Eos # (Auto) 0.11 Baso # (Auto) 0.03 Immature Gran # (Auto) 0.06 Absolute Nucleated RBC Nucleated RBC % (auto) Neutrophils % (Manual) Band Neutrophils % Lymphocytes % (Manual) Prolymphocyte % Reactive Lymphs % (Man) Monocytes % (Manual) Eosinophils % (Manual) Basophils % (Manual) Metamyelocytes % (Man) Myelocytes % (Man) Promyelocytes % (Man) Blast Cells % (Manual) Plasma Cell % (Manual) Other Cells % Nucleated RBC % Neutrophils # (Manual) Band Neutrophils # Total Absolute Neuts Lymphocytes # (Manual) Prolymphocyte # Reactive Lymphs # Total Abs Lymphocytes Monocytes # (Manual) Eosinophils # (Manual) Basophils # (Manual) Metamyelocytes # (Man) Myelocytes # (Manual) Promyelocytes # (Man) Blast Cells # (Man) Plasma Cell # (Manual) Other Cells # Nucleated RBCs # (Man) Hypersegmented Neuts Hyposegmented Neuts Hypogranular Neuts Large Granular Lymphs # Lrg Granular Lymphs Hairy Cells Smudge Cells Toxic Granulation Toxic Vacuolation Dohle Bodies Juice Rods Platelet Estimate Hypogranular Platelets Giant Platelets Platelet Satelliting RBC Morphology Polychromasia Hypochromasia Poikilocytosis Basophilic Stippling Anisocytosis Microcytosis Macrocytosis Spherocytes Pappenheimer Bodies Sickle Cells Target Cells Tear Drop Cells Ovalocytes Stomatocytes [place] Bodies Echinocytes Acanthocytes (Spur) Rouleaux RBC Agglutinates Schistocytes Sezary Cell Sodium Potassium Chloride Carbon Dioxide Anion Gap BUN Creatinine Est Cr Clr Drug Dosing Est GFR ( Amer) Est GFR (Non-Af Amer) BUN/Creatinine Ratio Glucose Calcium Total Bilirubin AST ALT Alkaline Phosphatase Total Protein Albumin Globulin Albumin/Globulin Ratio TSH Free T4 Urine Color Dark Yellow Urine Appearance Clear Urine pH 6.0 Ur Specific [place] 1.025 Urine Protein Negative Urine Glucose (UA) Negative Urine Ketones Trace H Urine Blood Negative Urine Nitrite Negative Urine Bilirubin Negative Urine Urobilinogen Negative Ur Leukocyte Esterase Negative Salicylates Urine Opiates Screen Neg Ur Methadone, Qual Neg Acetaminophen Urine Barbiturates Neg Ur Phencyclidine (PCP) Neg U Amphetamin/Meth Scrn Neg MDMA (Ecstasy) Screen Neg U Benzodiazepines Scrn Neg Ur Cocaine Metabolite Neg U Marijuana (THC) Screen Neg Ethyl Alcohol mg/dL SARS-CoV-2, RNA, NAAT Blood Parasites ID Hospital Course (1) Depression: Plan 10/04/22: continue Vistaril, needs family meeting for safety planning. 10/04/22: The patient was admitted to the [facility] ([facility] mental health unit) on q15 min checks (behavioral with suicide precautions) for safety. The patient will participate in group, recreational, and milieu therapies and will be offered additional individual and family sessions as clinically appropriate. I do not recall him being on any antidepressants in the past, I suspect he took clonidine or trazodone for sleep, regardless no meds for several years. He is most interested in medication to regulate sleep and will be scheduled Vistaril 50 mg this hs with prn. Post Discharge Appointments Smoking Cessation Counseling Tobacco Cessation Medication Prescribed at Discharge: Not Applicable/Non-Smoker Discharge Plan Discharge Items Patient Disposition: Home - Self-Care Reason For Visit: MDD Discharge Diagnosis: major depressive disorder Activity: Resume your previous activity Non-emergency contact: Primary Care Provider, Psychiatrist and Therapist Call non-emergency contact if: you have any medication questions and your symptoms worsen Follow-up/Referrals: PCP,NO [Primary Care Provider] - Diet: Regular Addtl Attending Provider Instructions: SPECIAL CARE INSTRUCTIONS: 1. Follow through with your scheduled aftercare appointments. If unable to keep an appointment, please call to reschedule. 2. Take your medication only as prescribed. Medication should not be changed or stopped without the approval of your doctor. In the event of worsening symptoms or concerns about side effects, contact your doctor immediately. 3. Utilize new healthy coping skills, anger management skills, and stress management skills learned during your hospitalization. Journal feelings and process them with a support person. Identify stressors or situations that may result in relapse, deterioration or inappropriate behaviors and develop a plan to deal with those issues. 4. If your coping skills are ineffective and you are in crisis, contact your outpatient providers for direction. If unable to reach your providers, please call the [facility] CRISIS LINE AT , go to the [facility] walk-in center at [address], [place], or go to the closest Emergency Room. 5. Avoid alcohol and un-prescribed drugs. 6. You have been provided with the Mental Health Advance Directives Pamphlet for your review. 7. Your condition is stable for discharge to outpatient level of care, but recovery is an ongoing process. Ifthoughts to harm yourself or others return, follow the safety plan developed during your stay. Planning for a safe return home includes securing weapons. Our treatment team recommends weaponsbe removed from the home until your outpatient provider reassesses your progress. In rare cases where the items themselvescannot be removed, guns and ammunitionshould be secured separatelyand keys stored by a reliable personoutside of the home. If you were admitted on an involuntary commitment, the police or other legal authorities may be involved in this process. AFTERCARE APPOINTMENTS: * Please call your insurance company prior to your scheduled appointment to confirm your aftercare providers are covered. Take your insurance information to your appointments. WHO TO CALL AND WHEN: Medical Emergencies: For questions or emergencies related to your hospital stay, please contact the Inpatient Behavioral Health Unit at [phone]. A pyrotechnist is on-call 05/01 for the Behavioral Health Unit for emergencies At any time you feel your situation is an emergency, you may also call 911 immediately. Pending Studies at Discharge: No Stand-Alone Forms: [facility] Smoking Cessation Medications and DC Order Prescriptions: New hydroxyzine HCl 50 mg tablet 50 mg PO HS Qty: 30 0RF Discharge Orders: Discharge Order (Routine); Ordered 10/06/22 Ordered By: Olga Verdugo Admission Data Admit Date/Time: 10/03/22 18:28 Attending Provider: Olga Verdugo Admit Provider: Olga Verdugo Primary Care Provider: PCP,NO Other Interventions: Discharge Summary Assessment (RN) Last Done: 10/06/22 07:55 PSY Interdisciplinary Discharge Planning Last Done: 10/06/22 10:30 Coding Level of Care Code 45048 D/C day mgmt > 30 min Diagnoses Depression F32.A
== END 2022-10-06 12:12 | disposition home or self-care (01) | DRG 881 ==
LOC: ED 11:58 → 3S 18:26

== ENCOUNTER 2023-01-19 09:32 | Inpatient (IN) ==
--- NOTE | 2023-01-19 10:05 | Emergency Department Note ---
Impression & Plan Depression with suicidal ideation ADMIT ED Provider Note HPI: The patient is a 22-year-old male with history of depression, presents emergency department with increasing suicidal thoughts over the past several weeks. Patient states that he has been having thoughts of wanting to harm himself and states that he has intent to do so when his depression gets "really bad". Patient states he has been writing down a list of how he might kill himself including jumping off of a bridge or possibly "taking poison". Patient denies any recent alcohol or drug use. On arrival here to the ED the patient is alert, he is hemodynamically stable, he is cooperative and otherwise in no acute distress. ROS: - Per HPI *Outpatient medications and allergy history reviewed. *Pertinent external medical records reviewed. PE: General: Alert HEENT: Normocephalic, trachea midline Eyes: Extraocular eye movement is intact, no scleral erythema Pulmonary: Clear to auscultation bilaterally, no wheezing Cardio: Regular rate and rhythm GI: Abdomen is soft to palpation : No suprapubic tenderness MSK: No evidence of trauma or malformation of the extremities, no edema Skin: No evidence of rash, superficial lacerations without active bleeding to the left forearm that appear subacute Neuro: Alert, no focal deficits Psychiatric: Cooperative Medical Decision Making: Patient presented to the emergency department with suicidal ideations. He states that he is having them with increasing frequency recently and was having thoughts of wanting to jump off a bridge or possibly "poison himself". On arrival here to the ED the patient is calm and cooperative, he is in no acute distress. On physical exam patient was noted to have some superficial lacerations to the left forearm that appear subacute, no active bleeding is noted, patient states that he was cutting his left forearm as a coping mechanism yesterday and this was not a suicide attempt in and of itself according to the patient. Lab work was obtained, there is no leukocytosis, hemoglobin is normal, platelet count is normal, CMP does not show any critical findings, urine drug screen is negative. Patient was assessed by case management, he ultimately was excepted for inpatient psychiatric care at [address] where he previously has been admitted. Patient was admitted in stable condition. Consultants: Case management Disposition discussion held by myself with: Patient Diagnosis: 1. Suicidal thoughts, acute 2. Anxiety/depression 3. Self-mutilation behavior Disposition: Admission Toni Ugalde DO Emergency Medicine Past Med/Surg History Medical History No acute medical problems Surgical History No significant past surgical history Family History Other No significant family history Social History Smoking Status: Current some day smoker Tobacco Type: Cigarettes Hx Alcohol Use: No Preferred Language: Croatian Communication Ability: Effective Carriage Feeder Required: No Beliefs That Will Affect Care: None Feels Safe at Home: Yes Gender Identity: Male Assistive Devices: Glasses Allergies Allergies Allergy/AdvReac Type Severity Reaction Status Date / Time No Known Allergies Allergy Verified 04/14/22 02:39 Home Meds Previous Rx's Medication Instructions Recorded hydroxyzine HCl 50 mg tablet 50 mg PO HS #30 tabs 10/06/22 Results & Data (ED) Vital Signs Vital Signs - 24 hr 01/19/23 09:42 Temperature 36.3 C L Temperature Source Temporal Artery Scan Pulse Rate 78 Respiratory Rate 20 Respiratory Effort / Characteristics Non-Labored Respiratory Depth Normal Blood Pressure 129/94 Blood Pressure Mean 105 Pulse Oximetry 98 Oxygen Delivery Method Room Air Sepsis Recent Fever Within 48 Hours No Sepsis New/Unexplained Change in Mental Status N/A Sepsis Action Taken by Nursing No Action Required Laboratory Data 01/19/23 09:55 01/19/23 09:55 Lab Results 01/19/23 01/19/23 01/19/23 Range/Units 09:55 09:55 09:55 WBC 7.72 (4.8-10.8) K/ul RBC 5.72 (4.70-6.10) M/uL Hgb 17.3 (14.0-18.0) g/dl Hct 49.2 (42.0-52.0) % MCV 86.0 (80.0-100.0) fL MCH 30.2 (25.0-34.0) pg MCHC 35.2 (32.0-36.0) g/dL RDW Std Deviation 37.5 (36.4-46.3) fL RDW Coeff of Florentin 12.0 (11.5-14.5) % Plt Count 201 (130-400) K/uL MPV 11.4 (9.4-12.4) fL Immature Gran % (Auto) 0.8 % Neut % (Auto) 68.4 % Lymph % (Auto) 24.0 % Bland % (Auto) 5.4 % Eos % (Auto) 0.9 % Baso % (Auto) 0.5 % Neut # (Auto) 5.28 (1.40-6.50) K/uL Lymph # (Auto) 1.85 (1.2-3.4) K/uL Bland # (Auto) 0.42 (0.11-0.59) K/uL Eos # (Auto) 0.07 (0-0.50) K/uL Baso # (Auto) 0.04 (0-0.2) K/uL Immature Gran # (Auto) 0.06 (0.01-0.20) K/uL Sodium 140 (136-145) mmol/L Potassium 4.1 (3.5-5.1) mmol/L Chloride 105 (98-107) mmol/L Carbon Dioxide 30 (21-32) mmol/L Anion Gap 5 (3-11) BUN 14 (6-23) mg/dl Creatinine 0.97 (0.6-1.4) mg/dl Est Cr Clr Drug Dosing 126.0 ml/min Est GFR ( Amer) 127.0 ml/min Est GFR (Non-Af Amer) 109.6 ml/min BUN/Creatinine Ratio 14.4 (10-20) Glucose 91 (70-99(Fasting)) mg/dl Calcium 9.5 (8.6-10.3) mg/dl Total Bilirubin 0.9 (0.2-1.0) mg/dl AST 21 (13-39) U/L ALT 17 (7-52) U/L Alkaline Phosphatase 58 (34-104) U/L Total Protein 7.8 (6.0-8.3) gm/dl Albumin 4.7 (3.4-5.0) gm/dl Globulin 3.1 (2.5-4.0) gm/dl Albumin/Globulin Ratio 1.5 (0.9-2) TSH 2.104 (0.300-4.500) uIu/ml Salicylates (3.0-30) mg/dl Acetaminophen (10-30) ug/ml Ethyl Alcohol mg/dL (<10.0) mg/dl SARS-CoV-2, RNA, NAAT (NEGATIVE) 01/19/23 01/19/23 01/19/23 Range/Units 09:55 09:55 10:00 WBC (4.8-10.8) K/ul RBC (4.70-6.10) M/uL Hgb (14.0-18.0) g/dl Hct (42.0-52.0) % MCV (80.0-100.0) fL MCH (25.0-34.0) pg MCHC (32.0-36.0) g/dL RDW Std Deviation (36.4-46.3) fL RDW Coeff of Florentin (11.5-14.5) % Plt Count (130-400) K/uL MPV (9.4-12.4) fL Immature Gran % (Auto) % Neut % (Auto) % Lymph % (Auto) % Bland % (Auto) % Eos % (Auto) % Baso % (Auto) % Neut # (Auto) (1.40-6.50) K/uL Lymph # (Auto) (1.2-3.4) K/uL Bland # (Auto) (0.11-0.59) K/uL Eos # (Auto) (0-0.50) K/uL Baso # (Auto) (0-0.2) K/uL Immature Gran # (Auto) (0.01-0.20) K/uL Sodium (136-145) mmol/L Potassium (3.5-5.1) mmol/L Chloride (98-107) mmol/L Carbon Dioxide (21-32) mmol/L Anion Gap (3-11) BUN (6-23) mg/dl Creatinine (0.6-1.4) mg/dl Est Cr Clr Drug Dosing ml/min Est GFR ( Amer) ml/min Est GFR (Non-Af Amer) ml/min BUN/Creatinine Ratio (10-20) Glucose (70-99(Fasting)) mg/dl Calcium (8.6-10.3) mg/dl Total Bilirubin (0.2-1.0) mg/dl AST (13-39) U/L ALT (7-52) U/L Alkaline Phosphatase (34-104) U/L Total Protein (6.0-8.3) gm/dl Albumin (3.4-5.0) gm/dl Globulin (2.5-4.0) gm/dl Albumin/Globulin Ratio (0.9-2) TSH (0.300-4.500) uIu/ml Salicylates < 3.0 L (3.0-30) mg/dl Acetaminophen < 3 L (10-30) ug/ml Ethyl Alcohol mg/dL < 10.0 (<10.0) mg/dl SARS-CoV-2, RNA, NAAT NEGATIVE (NEGATIVE) Discharge Plan Visit Data Chief Complaint: Mental Health Evaluation Stated Complaint: MHE,CUTTING/SELF HARM ED Provider: Toni Ugalde Discharge Problem: Depression with suicidal ideation Patient Disposition: Home - Self-Care Discharge Instructions Interventions: ED Discharge Assessment Last Done: 01/19/23 12:38
[2023-01-19 10:29] LABS: Appearance Urine Clear (Clear); Bilirubin Urine Negative (Negative); Blood Urine Negative (Negative); Color Urine Yellow; Glucose Urine UA Negative (Negative); Ketones Urine Trace (Negative); Leukocyte Esterase Urine Negative (Negative); Nitrite Urine Negative (Negative); Protein Urine Negative (Negative); Specific Gravity Urine 1.025 (1.000-1.030); Urobilinogen Urine Negative (Negative)
[2023-01-19 10:30] LABS: Basophils # (auto) 0.04 K/uL (0-0.2); Basophils % (auto) 0.5 %; Eosinophils # (auto) 0.07 K/uL (0-0.50); Eosinophils % (auto) 0.9 %; Hematocrit (blood only) 49.2 % (42.0-52.0); Hemoglobin 17.3 g/dl (14.0-18.0); Immature Granulocytes # (auto) 0.06 K/uL (0.01-0.20); Immature Granulocytes % (auto) 0.8 %; Lymphocytes # (auto) 1.85 K/uL (1.2-3.4); Mean Corpuscular Hemoglobin 30.2 pg (25.0-34.0); Mean Corpuscular Hgb Conc 35.2 g/dL (32.0-36.0); Mean Platelet Volume 11.4 fL (9.4-12.4); Monocytes # (auto) 0.42 K/uL (0.11-0.59); Monocytes % (auto) 5.4 %; Neutrophils # (auto) 5.28 K/uL (1.40-6.50); Neutrophils % (auto) 68.4 %; Platelet Count 201 K/uL (130-400); RDW Standard Deviation 37.5 fL (36.4-46.3); Red Blood Count 5.72 M/uL (4.70-6.10); White Blood Count 7.72 K/ul (4.8-10.8)
[2023-01-19 10:44] LABS: Acetaminophen < 3 ug/ml (10-30); Salicylate < 3.0 mg/dl (3.0-30)
[2023-01-19 10:46] LABS: Albumin Globulin Ratio 1.5 (0.9-2); Albumin Level 4.7 gm/dl (3.4-5.0); BUN Creatinine Ratio 14.4 (10-20); Bilirubin,Total 0.9 mg/dl (0.2-1.0); Calcium 9.5 mg/dl (8.6-10.3); Est GFR (Non-African American) 109.6 ml/min; Globulin 3.1 gm/dl (2.5-4.0); Potassium 4.1 mmol/L (3.5-5.1); Total Protein 7.8 gm/dl (6.0-8.3)
[2023-01-19 11:33] LABS: Amphetamines+Metham, Urine Neg (Neg); Barbiturates, Urine Neg (Neg); Benzodiazepine, Urine Neg (Neg); Cocaine, Urine Neg (Neg); MDMA (Ecstacy), Urine Neg (Neg); Methadone, Urine Neg (Neg); Opiate, Urine Neg (Neg); Phencyclidine, Urine Neg (Neg)
[2023-01-19] MEDS ORDERED: BISMUTH SUBSALICYLATE LIQD 236 ML PO PRN (12:17)
[2023-01-19] MEDS ORDERED: hydrOXYzine HCl 25 MG TAB PO PRN ×2 (12:17)
[2023-01-19] MEDS ORDERED: SODIUM CHLORIDE 0.65% NA SOLN 45 ML (OCEAN) PRN (12:17)
[2023-01-19] MEDS ORDERED: ACETAMINOPHEN 325 MG TAB PO PRN (12:17)
[2023-01-19] MEDS ORDERED: MAGNESIUM HYDROXIDE SUSP 30 ML UDC PO PRN (12:17)
[2023-01-19] MEDS ORDERED: ALUMINUM/MAGNESIUM SUSP 30 ML UDC PO PRN (12:17)
--- NOTE | 2023-01-20 08:23 | History & Physical ---
Date of Service January 20, 2023 Impression / Recommendations Impression Gurdeep is a 22 year old man with a history of ASD, ADHD and MDD who was admitted for worsening depression with SI with plans and self-harm via cutting. Diagnostically consistent with major depressive disorder. He is deemed in need of psychiatric hospitalization for diagnostic clarification, safety and stabilization, medication management and development of further coping skills. Discussed medication treatment options in detail. Discussed risks, benefits and alternatives. Patient would like to continue and consented to increase sertraline for depression and to continue abilify for depression augmentation. Reviewed side effects including but not limited to: GI, DILLON, sexual side effects, and counseled on black box warning of potential for emergence of or increased SI and need to let staff know should this occur or should they feel unsafe. Also discussed importance of seeking emergency care following discharge if this side effect occurs in the future for sertraline as well as movement (TD, NMS), card iac (QTc prolongation), and metabolic (stroke, insulin resistance) and necessity for fasting lipid and glucose labwork and AIMS done with score of 0 for abilify. (1) MDD (major depressive disorder), recurrent episode, severe: (2) Depression with suicidal ideation: (3) Deliberate self-cutting: (4) Autism spectrum disorder: (5) ADHD (attention deficit hyperactivity disorder): Plan 01/20/2023: The patient was admitted to the [facility] ([facility] mental health unit) on q15 min checks (behavioral with suicide precautions) for safety. The p atient will participate in group, recreational, and milieu therapies and will be offered additional individual and family sessions as clinically appropriate. -Increase sertraline to 100mg daily -Increase abilify to 5mg daily (4mg dose not available on hospital formulary) -Fasting lipid panel, glucose and Vit D level tomorrow AM Inventory Assets Strengths: supportive relationships, willing to get treatment Needs: safety and stabilization, medication adjustment, additional coping skills, increased outpatient services Suicide Risk Level Suicide Risk Level: High-Moderate (q15 min suicide checks) (severe depression with SI with plan prior to admission but feels safe in the hospital, able to safety contract and agrees to let nursing/staff know should they develop plan, intent or feel unable to remain safe. 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 Chief Complaint "It's been a lot worse". History of Present Illness Gurdeep presents for worsening depression and SI with plans of jumping from a bridge or taking poison in the context of multiple psychosocial stressors including recent break-up with his fiancee and a new partner with mental health challenges. He notes that the breakup with his fiancee "completely devasted me". He notes that only recently did he start to think about suicidal plans which was a big change for him. He self-harmed with a knife prior to coming to the hospital due to increasing distress. He has self-harmed in the past for depression or when he feels trapped and "don't know what to say". Sleep has been ok, appetite has been stable, decreased energy and motivation, and hopelessness. Additional history per ED CM note from 01/19/2023: "Patient presents flat, but is cooperative, answering all questions asked of him. Last night, patient superficially cut himself with a pocket knife, multiple times, on his left arm, not requiring any medical intervention. Patient reports this was an act of self-harm in an attempt to alleviate stress and a form of punishment. Patient admits to suicidal ideations and has written down ideas on how to end his life. Patient reports some of these ideas has been more relevant than some, like jumping off a bridge or poisoning himself. Patient reports he has been dealing with these types of thoughts since 8th grade, but reports these thoughts have gotten a little more than he can handle and his intentions increase when in the heat of the moment [moments of feeling overwhelmed. Patient reports recent break up three weeks ago with his long-term fiance, financial and job. Patient reports just recently got involved in another relationship, but this person has been dealing with a lot of mental health issues recently too; and this is just far to overwhelming starting this new relationship. Patient reports depressive symptoms as crying, feelings of helpless/hopelessness, self-devaluation, lack of motivation and decrease in quality sleep. Patient describes moderate anxiety on most days with symptoms of trembling and excessive worry with occasional panic attacks. Patient has medication management and primary care with [facility] and is on waitlist for therapy. Patient is taking his prescribed Abilify as directed and last week he started a new anti-depressant after he discontinued using Lexapro, but does not recall what it is. Patient is diagnosed with MDD and ADHD. Patient also reports he is on the spectrum and is diagnosed with Aspergers. Patient lives in a home with his Grandmother, parents, sister and brother, all living in patients Grandmothers home. Patient reports mostly getting along with everyone, but the living space is limited, oftentimes couch surfing at friends homes. [...]" He is currently prescribed abilify 4mg daily (increased about a week ago, prior to that 2mg for ~3 weeks; he hasn't noticed if this has helped) and recent transition from escitalopram to sertraline (about one week). Psychiatric ROS notable for no history of celestina, psychosis, nor eating disorder. Past Psychiatric History Current Psychiatric Diagnosis: MDD, ADHD, ASD Outpatient Services: Stefany at [facility] for psychiatry, on therapy waitlist Previous Psych Admissions: [facility] September 2022 Do You Have Access To A Gun?: No (father has gun secured, he has no access requires a carlos) History of Previous Suicide Attempt: No Past Medication Trials: lexapro, Concerta, Vistaril, possible sleep medications (trazodone or clonidine) Past Head Trauma/Neuro History History of Concussion/Seizure: No Allergies Allergy/AdvReac Type Severity Reaction Status Date / Time No Known Allergies Allergy Verified 04/14/22 02:39 Home Medications Medication Instructions Recorded Confirmed Type aripiprazole 2 mg tablet 4 mg PO DAILY 01/19/23 01/19/23 History sertraline 100 mg tablet 50 mg PO DAILY 01/19/23 01/19/23 History ergocalciferol (vitamin D2) 1,250 50,000 unit PO WK 08/08/23 08/08/23 History mcg (50,000 unit) capsule hydroxyzine HCl 25 mg tablet 25 mg PO HS PRN Insomnia 01/20/23 01/20/23 History Family History Family History of: Depression Family Mental Health History Comment: states brother is depressed but he does not have a diagnosis Alcohol History Hx of Alcohol Use Over the Past 12 Months: Yes (Occasional, drank yesterday) AUDIT Total Score: 0 Sometimes with friends may have a few drinks Smoking Use Have You Smoked or Used Tobacco Products in the Last 30 Days: Yes tobacco type: cigarettes and e-cigarettes Smoking Status: Light tobacco smoker Substance History Hx of Prescription Med Misuse Over the Past 12 Months: No Hx of Over the Counter Med Misuse Over the Past 12 Months: No Hx of Inhalent Misuse Over the Past 12 Months: No Hx of Organic Substance Use Over the Past 12 Months: No Hx of Illegal Substances/Street Drug Use Over Past 12 Months: No Problems as a Result of Past Substance Use: None Identified now and then may use cannabis socially Personal History Living Arrangements: Home Highest Grade Completed: High School Graduate Employment Status: Em[employer] Employed ([employer]) Marital Status: Single (but in new relationship ) Number Of Children: 0 Beliefs That Will Affect Care: None Current Legal Problems: No Hx Legal Problems: No Patient History Medical History (Updated 01/20/23 @ 09:43 by Suni Elias MD) ADHD (attention deficit hyperactivity disorder) No acute medical problems Self-harming behavior Surgical History No significant past surgical history Family History Other No significant family history Social History Smoking Status: Light tobacco smoker Tobacco Type: Cigarettes Hx Alcohol Use: No Preferred Language: Czech Communication Ability: Effective Snagger Required: No Beliefs That Will Affect Care: None Feels Safe at Home: Yes Gender Identity: Male Assistive Devices: Glasses Review of Systems Review of Systems: All systems reviewed & are unremarkable except as noted in HPI & below Physical Exam Psychiatric: Orientation: alert and oriented x 3 Apperance: appropriately dressed and appropriately groomed Eye Contact: + fair eye contact Motor Behavior: no abnormal motor movements Speech: normal rate/rhythm/volume of speech Affect: + depressed affect and + constricted affect Mood: + depressed mood and + anxious mood Thought Process: goal directed thought process Thought Content: reality based without delusions Suicidal Thoughts: denies suicidal intent; + reports suicidal thoughts (intermittent thoughts ) and + reports suicidal plan (none for hospital) Homicidal Thoughts: denies homicidal thoughts Hallucinations: no auditory hallucinations and no visual hallucinations Cognition: recent memory grossly intact, remote memory grossly intact, attention grossly intact and language grossly intact Estimated Intelligence: consistent with education level Insight: + limited insight Judgment: + limited judgement Vital Signs (Past 24 Hours): Last Vital Signs Temp 36.4 C L 01/20/23 06:30 Pulse 82 01/20/23 06:30 Resp 16 01/20/23 06:30 BP 133/86 01/20/23 06:30 Pulse Ox 98 01/19/23 13:26 O2 Del Method Room Air 01/19/23 13:26 Exam Statement: A physical exam was performed in the ED by Dr. Ugalde for the purposes of medical clearance. I accept that physical as correct and adequate for the purposes of the inpatient physical exam. Results & Data ([facility]) Laboratory Results Laboratory Results - last 24 hr 01/19/23 01/19/23 01/19/23 09:55 09:55 09:55 WBC 7.72 RBC 5.72 Hgb 17.3 Hct 49.2 MCV 86.0 MCH 30.2 MCHC 35.2 RDW Std Deviation 37.5 RDW Coeff of Florentin 12.0 Plt Count 201 MPV 11.4 Immature Gran % (Auto) 0.8 Neut % (Auto) 68.4 Lymph % (Auto) 24.0 Will % (Auto) 5.4 Eos % (Auto) 0.9 Baso % (Auto) 0.5 Neut # (Auto) 5.28 Lymph # (Auto) 1.85 Will # (Auto) 0.42 Eos # (Auto) 0.07 Baso # (Auto) 0.04 Immature Gran # (Auto) 0.06 Sodium 140 Potassium 4.1 Chloride 105 Carbon Dioxide 30 Anion Gap 5 BUN 14 Creatinine 0.97 Est Cr Clr Drug Dosing 126.0 Est GFR ( Amer) 127.0 Est GFR (Non-Af Amer) 109.6 BUN/Creatinine Ratio 14.4 Glucose 91 Calcium 9.5 Total Bilirubin 0.9 AST 21 ALT 17 Alkaline Phosphatase 58 Total Protein 7.8 Albumin 4.7 Globulin 3.1 Albumin/Globulin Ratio 1.5 TSH 2.104 Urine Color Urine Appearance Urine pH Ur Specific [place] Urine Protein Urine Glucose (UA) Urine Ketones Urine Blood Urine Nitrite Urine Bilirubin Urine Urobilinogen Ur Leukocyte Esterase Salicylates Urine Opiates Screen Ur Methadone, Qual Acetaminophen Urine Barbiturates Ur Phencyclidine (PCP) U Amphetamin/Meth Scrn MDMA (Ecstasy) Screen U Benzodiazepines Scrn Ur Cocaine Metabolite U Marijuana (THC) Screen Ethyl Alcohol mg/dL SARS-CoV-2, RNA, NAAT 01/19/23 01/19/23 01/19/23 09:55 09:55 10:00 WBC RBC Hgb Hct MCV MCH MCHC RDW Std Deviation RDW Coeff of Florentin Plt Count MPV Immature Gran % (Auto) Neut % (Auto) Lymph % (Auto) Will % (Auto) Eos % (Auto) Baso % (Auto) Neut # (Auto) Lymph # (Auto) Will # (Auto) Eos # (Auto) Baso # (Auto) Immature Gran # (Auto) Sodium Potassium Chloride Carbon Dioxide Anion Gap BUN Creatinine Est Cr Clr Drug Dosing Est GFR ( Amer) Est GFR (Non-Af Amer) BUN/Creatinine Ratio Glucose Calcium Total Bilirubin AST ALT Alkaline Phosphatase Total Protein Albumin Globulin Albumin/Globulin Ratio TSH Urine Color Urine Appearance Urine pH Ur Specific [place] Urine Protein Urine Glucose (UA) Urine Ketones Urine Blood Urine Nitrite Urine Bilirubin Urine Urobilinogen Ur Leukocyte Esterase Salicylates < 3.0 L Urine Opiates Screen Ur Methadone, Qual Acetaminophen < 3 L Urine Barbiturates Ur Phencyclidine (PCP) U Amphetamin/Meth Scrn MDMA (Ecstasy) Screen U Benzodiazepines Scrn Ur Cocaine Metabolite U Marijuana (THC) Screen Ethyl Alcohol mg/dL < 10.0 SARS-CoV-2, RNA, NAAT NEGATIVE 01/19/23 01/19/23 Unknown Unknown WBC RBC Hgb Hct MCV MCH MCHC RDW Std Deviation RDW Coeff of Florentin Plt Count MPV Immature Gran % (Auto) Neut % (Auto) Lymph % (Auto) Will % (Auto) Eos % (Auto) Baso % (Auto) Neut # (Auto) Lymph # (Auto) Will # (Auto) Eos # (Auto) Baso # (Auto) Immature Gran # (Auto) Sodium Potassium Chloride Carbon Dioxide Anion Gap BUN Creatinine Est Cr Clr Drug Dosing Est GFR ( Amer) Est GFR (Non-Af Amer) BUN/Creatinine Ratio Glucose Calcium Total Bilirubin AST ALT Alkaline Phosphatase Total Protein Albumin Globulin Albumin/Globulin Ratio TSH Urine Color Yellow Urine Appearance Clear Urine pH 6.0 Ur Specific [place] 1.025 Urine Protein Negative Urine Glucose (UA) Negative Urine Ketones Trace H Urine Blood Negative Urine Nitrite Negative Urine Bilirubin Negative Urine Urobilinogen Negative Ur Leukocyte Esterase Negative Salicylates Urine Opiates Screen Neg Ur Methadone, Qual Neg Acetaminophen Urine Barbiturates Neg Ur Phencyclidine (PCP) Neg U Amphetamin/Meth Scrn Neg MDMA (Ecstasy) Screen Neg U Benzodiazepines Scrn Neg Ur Cocaine Metabolite Neg U Marijuana (THC) Screen Neg Ethyl Alcohol mg/dL SARS-CoV-2, RNA, NAAT Current Inpatient Medications Current Inpatient Medications: Current Inpatient Medications Acetaminophen (Acetaminophen 325 Mg Tab) 650 mg PO Q4H PRN PRN Reason: Headache or Minor Fever Stop: 02/18/23 12:16 Al Hydrox/Mg Hydrox/Simethicone (Aluminum/Magnesium Susp 30 Ml Udc) 30 ml PO Q4H PRN PRN Reason: GI Upset Stop: 02/18/23 12:16 Bismuth Subsalicylate (Bismuth Subsalicylate Liqd 236 Ml) 15 ml PO PRN PRN PRN Reason: Loose Stool Stop: 02/18/23 12:16 Hydroxyzine HCl (Hydroxyzine Hcl 25 Mg Tab) 50 mg PO HSZ PRN PRN Reason: Insomnia Stop: 02/18/23 12:16 Hydroxyzine HCl (Hydroxyzine Hcl 25 Mg Tab) 25 mg PO Q4H PRN PRN Reason: Anxiety Stop: 02/18/23 12:16 Magnesium Hydroxide (Magnesium Hydroxide Susp 30 Ml Udc) 30 ml PO DAILY PRN PRN Reason: Constipation Stop: 02/18/23 12:16 Sodium Chloride (Sodium Chloride 0.65% Na Soln 45 Ml ([place])) 1 - 2 sprays NA PRN PRN PRN Reason: Nasal Dryness/Congestion Stop: 02/18/23 12:16
[2023-01-20] MEDS: SERTRALINE HCL 100 MG TABLET PO SCH (10:57)
[2023-01-20] MEDS: ARIPiprazole 5 MG TAB PO SCH (10:57)
[2023-01-21] MEDS: ARIPiprazole 5 MG TAB PO SCH (08:28)
[2023-01-21] MEDS: SERTRALINE HCL 100 MG TABLET PO SCH (08:28)
[2023-01-21] MEDS ORDERED: ARIPiprazole 5 MG TAB PO SCH (09:00)
[2023-01-21 09:28] LABS: Chol HDL Ratio 2.8 (0-5)
--- NOTE | 2023-01-21 13:55 | Psychiatric Progress Note ---
Date of Service January 21, 2023 Impression / Recommendations Impression Gurdeep is a 22 year old man with a history of ASD, ADHD and MDD who was admitted for worsening depression with SI with plans and self-harm via cutting. Diagnostically consistent with major depressive disorder. He is deemed in need of psychiatric hospitalization for diagnostic clarification, safety and stabilization, medication management and development of further coping skills. 01/21/2023: Difficult sleep due to vivid dream, still with low energy and decreased motivation. Tolerating medication adjustments. Reviewed fasting glucose and lipid panel results which were normal, low Vit D he consents to starting Vit D supplementation. (1) MDD (major depressive disorder), recurrent episode, severe: (2) Depression with suicidal ideation: (3) Deliberate self-cutting: (4) Autism spectrum disorder: (5) ADHD (attention deficit hyperactivity disorder): Plan 01/21/2023: Continue sertraline and abilify. Start Vit D supplementation. 01/20/2023: The patient was admitted to the [facility]) on q15 min checks (behavioral with suicide precautions) for safety. The patient will participate in group, recreational, and milieu therapies and will be offered additional individual and family sessions as clinically appropriate. -Increase sertraline to 100mg daily -Increase abilify to 5mg daily (4mg dose not available on hospital formulary) -Fasting lipid panel, glucose and Vit D level tomorrow AM Inventory Assets Strengths: supportive relationships, willing to get treatment Needs: safety and stabilization, medication adjustment, additional coping skills, increased outpatient services Suicide Risk Level Suicide Risk Level: Moderate (q15 min suicide checks) (severe depression with SI with plan prior to admission but denies SI now, feels safe in the hospital, able to safety contract and agrees to let nursing/staff know should they develop plan, intent or feel unable to remain safe. 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 Chief Complaint "I'm not too bad after talking to my girlfriend". Review of Systems Sleep Information Total Hours of Sleep: 7.25 Meal Information Percent Meal Consumed - Breakfast: 100 Percent Meal Consumed - Lunch: 100 Percent Meal Consumed - Dinner: 100 Subjective Subjective Patient was seen & assessed and interval progress reviewed with treatment team nursing and social work. Reports he had a very vivid dream last night of someone he didn't know shooting themself in the dream. Still with depressed mood, low energy and low motivation but felt a little better this afternoon after talking to his girlfriend. Attending groups. Denies any medication side effects. Physical Exam Psychiatric Orientation: alert and oriented x 3 Apperance: appropriately dressed and appropriately groomed Eye Contact: + fair eye contact Motor Behavior: no abnormal motor movements Speech: normal rate/rhythm/volume of speech Affect: + depressed affect and + constricted affect Mood: + depressed mood Thought Process: goal directed thought process Thought Content: reality based without delusions Suicidal Thoughts: denies suicidal thoughts, denies suicidal plan and denies suicidal intent Homicidal Thoughts: denies homicidal thoughts Hallucinations: no auditory hallucinations and no visual hallucinations Cognition: recent memory grossly intact, remote memory grossly intact, attention grossly intact and language grossly intact Estimated Intelligence: consistent with education level Insight: + limited insight Judgment: + limited judgement Vital Signs (Past 24 Hours) Last Vital Signs Temp 36.8 C 01/21/23 06:29 Pulse 87 01/21/23 06:29 Resp 16 01/21/23 06:29 BP 124/84 01/21/23 06:29 Pulse Ox 98 01/19/23 13:26 O2 Del Method Room Air 01/19/23 13:26 Results & Data ([facility]) Laboratory Results Laboratory Results - last 24 hr 01/21/23 01/21/23 08:33 08:33 Fasting Glucose 94 Triglycerides 64 Cholesterol 140 LDL Cholesterol, Calc 77 VLDL Cholesterol, Calc 13 HDL Cholesterol 50 Cholesterol/HDL Ratio 2.8 25-OH Vitamin D Total 20.1 L Current Inpatient Medications Current Inpatient Medications: Current Inpatient Medications Acetaminophen (Acetaminophen 325 Mg Tab) 650 mg PO Q4H PRN PRN Reason: Headache or Minor Fever Stop: 02/18/23 12:16 Al Hydrox/Mg Hydrox/Simethicone (Aluminum/Magnesium Susp 30 Ml Udc) 30 ml PO Q4H PRN PRN Reason: GI Upset Stop: 02/18/23 12:16 Aripiprazole (Aripiprazole 5 Mg Tab) 5 mg PO DAILY VIN Stop: 02/19/23 10:44 Last Admin: 01/21/23 08:28 Dose: 5 mg Bismuth Subsalicylate (Bismuth Subsalicylate Liqd 236 Ml) 15 ml PO PRN PRN PRN Reason: Loose Stool Stop: 02/18/23 12:16 Hydroxyzine HCl (Hydroxyzine Hcl 25 Mg Tab) 50 mg PO HSZ PRN PRN Reason: Insomnia Stop: 02/18/23 12:16 Hydroxyzine HCl (Hydroxyzine Hcl 25 Mg Tab) 25 mg PO Q4H PRN PRN Reason: Anxiety Stop: 02/18/23 12:16 Magnesium Hydroxide (Magnesium Hydroxide Susp 30 Ml Udc) 30 ml PO DAILY PRN PRN Reason: Constipation Stop: 02/18/23 12:16 Sertraline HCl (Sertraline Hcl 100 Mg Tablet) 100 mg PO DAILY VIN Stop: 02/19/23 10:14 Last Admin: 01/21/23 08:28 Dose: 100 mg Sodium Chloride (Sodium Chloride 0.65% Na Soln 45 Ml ([place])) 1 - 2 sprays NA PRN PRN PRN Reason: Nasal Dryness/Congestion Stop: 02/18/23 12:16 Mental Health & Subst Abuse Tx Psychiatrist Name of Psychiatrist: [facility] - Dr. [place] Psychiatrist's Date Of Appointment With Psychiatric Provider: 02/05/23 Time of Appointment with Psychiatrist: 7:30 AM Psychiatric Appointment Comment: [address] [facility], [place] [address] Therapist Name of Therapist: [facility] Orquidea Greenwood LCSW Therapist's Date of Therapist Appointment: 01/26/23 Time of Therapist Appointment: 8:15 AM Therapy Appointment Comment: Telehealth - complete all paperwork via [employer] prior to appointment Post Discharge Appointments Primary Care Physician Name Of Family Doctor/PCP: [facility] - Courtney [facility] Primary [facility] Date of Future Appointment with PCP: 02/11/23 Time of Appointment with PCP: 7:45 AM Provider Appointment Comment: [address] [facility], [place] [address] Contact Information Discharge Discharge Address: [address] [place] [address] [place] [id number]
[2023-01-22] MEDS: SERTRALINE HCL 100 MG TABLET PO SCH (08:24)
[2023-01-22] MEDS: ARIPiprazole 5 MG TAB PO SCH (08:24)
[2023-01-22] MEDS: CHOLECALCIFEROL 1,000 UNITS 25 MCG TAB PO SCH (08:24)
--- NOTE | 2023-01-22 09:13 | Psychiatric Progress Note ---
Date of Service January 22, 2023 Impression / Recommendations Impression Gurdeep is a 22 year old man with a history of ASD, ADHD and MDD who was admitted for worsening depression with SI with plans and self-harm via cutting. Diagnostically consistent with major depressive disorder. He is deemed in need of psychiatric hospitalization for diagnostic clarification, safety and stabilization, medication management and development of further coping skills. 01/22/2023: Sleep better last night without any vivid dreams, mood improving, no SI today and more future-oriented. Still struggling at times with transition from pats romantic relationship to new relationship and managing mixed emotions related to this. Tolerating his medications well. (1) MDD (major depressive disorder), recurrent episode, severe: (2) Depression with suicidal ideation: (3) Deliberate self-cutting: (4) Autism spectrum disorder: (5) ADHD (attention deficit hyperactivity disorder): Plan 01/22/2023: Continue current medications and tx plan. 01/21/2023: Continue sertraline and abilify. Start Vit D supplementation. 01/20/2023: The patient was admitted to the [facility] ([facility]) on q15 min checks (behavioral with suicide precautions) for safety. The patient will participate in group, recreational, and milieu therapies and will be offered additional individual and family sessions as clinically appropriate. -Increase sertraline to 100mg daily -Increase abilify to 5mg daily (4mg dose not available on hospital formulary) -Fasting lipid panel, glucose and Vit D level tomorrow AM Inventory Assets Strengths: supportive relationships, willing to get treatment Needs: safety and stabilization, medication adjustment, additional coping skills, increased outpatient services Suicide Risk Level Suicide Risk Level: Moderate (q15 min suicide checks) (severe depression with SI with plan prior to admission but denies SI now, feels safe in the hospital, able to safety contract and agrees to let nursing/staff know should they develop plan, intent or feel unable to remain safe. ) Risk Factors Assessment Male: Yes : Yes Do You Have Access To A Gun?: No (father has gun secured, he has no access requires a carlos) Health Problems: No Mental Health Diagnoses: Yes Substance Use Disorders: No Previous Attempt: No Family History of Suicide: No Previous Psychiatric Hospitalization: Yes Protective Factors Assessment Employed: Yes (local [employer], full-time) Supportive Family: Yes Interval History Identifying Information GURDEEP GUERRA is a 22-year-old M who currently lives in [place] with his grandmother and other family members, has a history of ADHD, ASD and MDD, and was admitted on 01/19/23 12:17 on a 201 voluntary commitment for SI with plans. Chief Complaint "Good but a little bit down". Review of Systems Sleep Information Total Hours of Sleep: 7 Meal Information Percent Meal Consumed - Breakfast: 100 Percent Meal Consumed - Lunch: 100 Percent Meal Consumed - Dinner: 100 Subjective Subjective Patient was seen & assessed and interval progress reviewed with treatment team nursing and social work. Tearful last night with some SI after trying to call his ex-girlfriend. Today denies any SI, had a good family meeting. Discussed mood impact of his new girlfriend hearing him talk about how he is still working on moving forward from his past relationship. He did not have any nightmares or vivid dreams last night, slept well. Denies any medication side effects. Future oriented about possibly going to a local fair this weekend. Physical Exam Psychiatric Orientation: alert and oriented x 3 Apperance: appropriately dressed and appropriately groomed Eye Contact: + fair eye contact Motor Behavior: no abnormal motor movements Speech: normal rate/rhythm/volume of speech Affect: + constricted affect Mood: + depressed mood Thought Process: goal directed thought process Thought Content: reality based without delusions Suicidal Thoughts: denies suicidal thoughts, denies suicidal plan and denies suicidal intent Homicidal Thoughts: denies homicidal thoughts Hallucinations: no auditory hallucinations and no visual hallucinations Cognition: recent memory grossly intact, remote memory grossly intact, attention grossly intact and language grossly intact Estimated Intelligence: consistent with education level Insight: + limited insight Judgment: + limited judgement Vital Signs (Past 24 Hours) Last Vital Signs Temp 37.1 C 01/22/23 06:00 Pulse 95 H 01/22/23 06:42 Resp 18 01/22/23 06:00 BP 123/71 01/22/23 06:42 Pulse Ox 97 01/22/23 06:00 O2 Del Method Room Air 01/22/23 06:00 Results & Data ([facility]) Laboratory Results Laboratory Results - last 24 hr 01/21/23 01/21/23 08:33 08:33 Fasting Glucose 94 Triglycerides 64 Cholesterol 140 LDL Cholesterol, Calc 77 VLDL Cholesterol, Calc 13 HDL Cholesterol 50 Cholesterol/HDL Ratio 2.8 25-OH Vitamin D Total 20.1 L Current Inpatient Medications Current Inpatient Medications: Current Inpatient Medications Acetaminophen (Acetaminophen 325 Mg Tab) 650 mg PO Q4H PRN PRN Reason: Headache or Minor Fever Stop: 02/18/23 12:16 Al Hydrox/Mg Hydrox/Simethicone (Aluminum/Magnesium Susp 30 Ml Udc) 30 ml PO Q4H PRN PRN Reason: GI Upset Stop: 02/18/23 12:16 Aripiprazole (Aripiprazole 5 Mg Tab) 5 mg PO DAILY VIN Stop: 02/19/23 10:44 Last Admin: 01/22/23 08:24 Dose: 5 mg Bismuth Subsalicylate (Bismuth Subsalicylate Liqd 236 Ml) 15 ml PO PRN PRN PRN Reason: Loose Stool Stop: 02/18/23 12:16 Hydroxyzine HCl (Hydroxyzine Hcl 25 Mg Tab) 50 mg PO HSZ PRN PRN Reason: Insomnia Stop: 02/18/23 12:16 Hydroxyzine HCl (Hydroxyzine Hcl 25 Mg Tab) 25 mg PO Q4H PRN PRN Reason: Anxiety Stop: 02/18/23 12:16 Magnesium Hydroxide (Magnesium Hydroxide Susp 30 Ml Udc) 30 ml PO DAILY PRN PRN Reason: Constipation Stop: 02/18/23 12:16 Sertraline HCl (Sertraline Hcl 100 Mg Tablet) 100 mg PO DAILY VIN Stop: 02/19/23 10:14 Last Admin: 01/22/23 08:24 Dose: 100 mg Sodium Chloride (Sodium Chloride 0.65% Na Soln 45 Ml ([place])) 1 - 2 sprays NA PRN PRN PRN Reason: Nasal Dryness/Congestion Stop: 02/18/23 12:16 Vitamin D (Cholecalciferol 1,000 Units 25 Mcg Tab) 1,000 units PO QAM VIN Stop: 02/21/23 08:59 Last Admin: 01/22/23 08:24 Dose: 1,000 units Mental Health & Subst Abuse Tx Psychiatrist Name of Psychiatrist: [facility] - Dr. Reno Psychiatrist's Date Of Appointment With Psychiatric Provider: 02/05/23 Time of Appointment with Psychiatrist: 7:30 AM Psychiatric Appointment Comment: [address] [place] [address] Therapist Name of Therapist: [facility] - Marian Greenwood LCSW Therapist's Date of Therapist Appointment: 01/26/23 Time of Therapist Appointment: 8:15 AM Therapy Appointment Comment: Telehealth - complete all paperwork via [employer] prior to appointment Post Discharge Appointments Primary Care Physician Name Of Family Doctor/PCP: [facility] - Courtney Pepe [facility] Date of Future Appointment with PCP: 02/11/23 Time of Appointment with PCP: 7:45 AM [facility]ment [facility] [address] [facility] [place] [address] Contact Information Discharge Discharge Address: [address] [place], [place] [address] [id number]
[2023-01-23] MEDS: CHOLECALCIFEROL 1,000 UNITS 25 MCG TAB PO SCH (08:02)
[2023-01-23] MEDS: SERTRALINE HCL 100 MG TABLET PO SCH (08:02)
[2023-01-23] MEDS: ARIPiprazole 5 MG TAB PO SCH (08:02)
--- NOTE | 2023-01-23 10:18 | Discharge Summary ---
Date of Service January 23, 2023 History of Present Illness Gurdeep presents for worsening depression and SI with plans of jumping from a bridge or taking poison in the context of multiple psychosocial stressors including recent break-up with his fiancee and a new partner with mental health challenges. He notes that the breakup with his fiancee "completely devasted me". He notes that only recently did he start to think about suicidal plans which was a big change for him. He self-harmed with a knife prior to coming to the hospital due to increasing distress. He has self-harmed in the past for depression or when he feels trapped and "don't know what to say". Sleep has been ok, appetite has been stable, decreased energy and motivation, and hopelessness. Additional history per ED CM note from 01/19/2023: "Patient presents flat, but is cooperative, answering all questions asked of him. Last night, patient superficially cut himself with a pocket knife, multiple times, on his left arm, not requiring any medical intervention. Patient reports this was an act of self-harm in an attempt to alleviate stress and a form of punishment. Patient admits to suicidal ideations and has written down ideas on how to end his life. Patient reports some of these ideas has been more relevant than some, like jumping off a bridge or poisoning himself. Patient reports he has been dealing with these types of thoughts since 8th grade, but reports these thoughts have gotten a little more than he can handle and his intentions increase when in the heat of the moment [moments of feeling overwhelmed. Patient reports recent break up three weeks ago with his long-term fiance, financial and job. Patient reports just recently got involved in another relationship, but this person has been dealing with a lot of mental health issues recently too; and this is just far to overwhelming starting this new relationship. Patient reports depressive symptoms as crying, feelings of helpless/hopelessness, self-devaluation, lack of motivation and decrease in quality sleep. Patient describes moderate anxiety on most days with symptoms of trembling and excessive worry with occasional panic attacks. Patient has medication management and primary care with [facility] and is on waitlist for therapy. Patient is taking his prescribed Abilify as directed and last week he started a new anti-depressant after he discontinued using Lexapro, but does not recall what it is. Patient is diagnosed with MDD and ADHD. Patient also reports he is on the spectrum and is diagnosed with Aspergers. Patient lives in a home with his Grandmother, parents, sister and brother, all living in patients Grandmothers home. Patient reports mostly getting along with everyone, but the living space is limited, oftentimes couch surfing at friends homes. [...]" He is currently prescribed abilify 4mg daily (increased about a week ago, prior to that 2mg for ~3 weeks; he hasn't noticed if this has helped) and recent transition from escitalopram to sertraline (about one week). Psychiatric ROS notable for no history of celestina, psychosis, nor eating disorder. Physical Exam Vital Signs (Past 24 Hours) Last Vital Signs Temp 36.7 C 01/23/23 06:45 Pulse 80 01/23/23 06:45 Resp 16 01/23/23 06:45 BP 141/91 H 01/23/23 06:45 Pulse Ox 97 01/22/23 06:00 O2 Del Method Room Air 01/22/23 06:00 See admission H&P and DOD summary. Principal Diagnosis Major Depressive Disorder, recurrent Psychiatric Data See daily stay summary. In short, patient was engaged with the social/therapeutic milieu of the unit, safety was maintained and the patient was cooperative with care. Medication changes included increase of abilify to 5mg for depression augmentation and increase of sertraline to 100mg daily for depression and they tolerated this well. Baseline labs of fasting glucose, fasting lipid profile, and weight were preformed and normal. Recommend repeat weight in one month. Recommend repeat fasting glucose, HbA1c and fasting lipid profile every 12 weeks and then annually. If symptoms arise recommend checking BP, EKG, prolactin level as clinically indicated or relevant. A family session was held and safety plan was completed prior to discharge. He actively participated in safety planning and in discussions about ways to seek support and recognizing warning signs and utilizing coping skills. Reviewed mobile apps that could be used for additional ways to have their safety plan and contacts easily available should thoughts of SI re-emerge in the future. Reviewed importance of seeking emergency care should SI intensify, worsen or should they feel unsafe in the future which they agree to do. On the day of discharge he stated his mood was "back to being content and happy" and remained future-oriented including spending time with his girlfriend, going to the fair tomorrow, playing games tonight and engaging in aftercare appointments for psychiatry and therapy. Day of Discharge Assessment Today the patient voices readiness for discharge. They note improvement in mood and anxiety. They deny thoughts of harm to self or others. Thoughts are organized and they are clinically improved from admission. There is no evidence of psychosis. They improved in the hospital with support and medication adjustments. They agree to take medications as prescribed and keep follow-up appointments. At the time of the discharge they are deemed to be stable and appropriate for outpatient level of care. They are not deemed to be at imminent risk of harm to self or others. They are aware of emergency and crisis services. Knows to call 911 or go to nearest emergency care center if in a crisis which cannot be handled as an outpatient. Transition of Care Transition Of Care Record: was reviewed with the patient Advance Directives Advance Directives Information Provided: Yes Advance Directives: No Mental Health Advance Directive: No Advance Directives on File: No Living Will: No Power of Broadcast Operations Director: No Advance Directives Reason:: Declines as Mental Health Visit. Suicide Risk Level Suicide Risk Level Comments: Acute risk is low given improvement in mood and denial of SI, lack of access to lethal means, improvement in sleep, hopefulness. Chronic risk is low to moderate given some non-modifiable risk factors: psychiatric co-morbid diagnoses, periods of impulsivity, self-harm, emotional reactivity, prior psychiatric hospitalization, but also with protective factors including: employed, sense of responsibility to family and social supports, outpatient care in place, positive coping skills, capacity to establish therapeutic alliance, willingness to engage with treatment and capacity for self-observation. Counseled on ways to reduce acute and chronic risk including engaging with outpatient providers, using safety plan if needed, utilizing supports, taking medication, and using coping skills. Modifiable risk factors of SI and depression were addressed during hospitalization through development of new coping skills, will be s tarting outpatient therapy to build more coping skills, family meeting, safety planning, and medication adjustments. 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) Supportive Family: Yes Discharge Data Lab Results 01/19/23 01/19/23 01/19/23 09:55 09:55 09:55 WBC 7.72 RBC 5.72 Hgb 17.3 Hct 49.2 MCV 86.0 MCH 30.2 MCHC 35.2 RDW Std Deviation 37.5 RDW Coeff of Florentin 12.0 Plt Count 201 MPV 11.4 Immature Gran % (Auto) 0.8 Neut % (Auto) 68.4 Lymph % (Auto) 24.0 [place] % (Auto) 5.4 Eos % (Auto) 0.9 Baso % (Auto) 0.5 Neut # (Auto) 5.28 Lymph # (Auto) 1.85 [place] # (Auto) 0.42 Eos # (Auto) 0.07 Baso # (Auto) 0.04 Immature Gran # (Auto) 0.06 Sodium 140 Potassium 4.1 Chloride 105 Carbon Dioxide 30 Anion Gap 5 BUN 14 Creatinine 0.97 Est Cr Clr Drug Dosing 126.0 Est GFR ( Amer) 127.0 Est GFR (Non-Af Amer) 109.6 BUN/Creatinine Ratio 14.4 Glucose 91 Fasting Glucose Calcium 9.5 Total Bilirubin 0.9 AST 21 ALT 17 Alkaline Phosphatase 58 Total Protein 7.8 Albumin 4.7 Globulin 3.1 Albumin/Globulin Ratio 1.5 Triglycerides Cholesterol LDL Cholesterol, Calc VLDL Cholesterol, Calc HDL Cholesterol Cholesterol/HDL Ratio 25-OH Vitamin D Total TSH 2.104 Urine Color Urine Appearance Urine pH Ur Specific [place] Urine Protein Urine Glucose (UA) Urine Ketones Urine Blood Urine Nitrite Urine Bilirubin Urine Urobilinogen Ur Leukocyte Esterase Salicylates Urine Opiates Screen Ur Methadone, Qual Acetaminophen Urine Barbiturates Ur Phencyclidine (PCP) U Amphetamin/Meth Scrn MDMA (Ecstasy) Screen U Benzodiazepines Scrn Ur Cocaine Metabolite U Marijuana (THC) Screen Ethyl Alcohol mg/dL SARS-CoV-2, RNA, NAAT 01/19/23 01/19/23 01/19/23 09:55 09:55 10:00 WBC RBC Hgb Hct MCV MCH MCHC RDW Std Deviation RDW Coeff of Florentin Plt Count MPV Immature Gran % (Auto) Neut % (Auto) Lymph % (Auto) [place] % (Auto) Eos % (Auto) Baso % (Auto) Neut # (Auto) Lymph # (Auto) [place] # (Auto) Eos # (Auto) Baso # (Auto) Immature Gran # (Auto) Sodium Potassium Chloride Carbon Dioxide Anion Gap BUN Creatinine Est Cr Clr Drug Dosing Est GFR ( Amer) Est GFR (Non-Af Amer) BUN/Creatinine Ratio Glucose Fasting Glucose Calcium Total Bilirubin AST ALT Alkaline Phosphatase Total Protein Albumin Globulin Albumin/Globulin Ratio Triglycerides Cholesterol LDL Cholesterol, Calc VLDL Cholesterol, Calc HDL Cholesterol Cholesterol/HDL Ratio 25-OH Vitamin D Total TSH Urine Color Urine Appearance Urine pH Ur Specific [place] Urine Protein Urine Glucose (UA) Urine Ketones Urine Blood Urine Nitrite Urine Bilirubin Urine Urobilinogen Ur Leukocyte Esterase Salicylates < 3.0 L Urine Opiates Screen Ur Methadone, Qual Acetaminophen < 3 L Urine Barbiturates Ur Phencyclidine (PCP) U Amphetamin/Meth Scrn MDMA (Ecstasy) Screen U Benzodiazepines Scrn Ur Cocaine Metabolite U Marijuana (THC) Screen Ethyl Alcohol mg/dL < 10.0 SARS-CoV-2, RNA, NAAT NEGATIVE 01/19/23 01/19/23 01/21/23 Unknown Unknown 08:33 WBC RBC Hgb Hct MCV MCH MCHC RDW Std Deviation RDW Coeff of Florentin Plt Count MPV Immature Gran % (Auto) Neut % (Auto) Lymph % (Auto) [place] % (Auto) Eos % (Auto) Baso % (Auto) Neut # (Auto) Lymph # (Auto) [place] # (Auto) Eos # (Auto) Baso # (Auto) Immature Gran # (Auto) Sodium Potassium Chloride Carbon Dioxide Anion Gap BUN Creatinine Est Cr Clr Drug Dosing Est GFR ( Amer) Est GFR (Non-Af Amer) BUN/Creatinine Ratio Glucose Fasting Glucose 94 Calcium Total Bilirubin AST ALT Alkaline Phosphatase Total Protein Albumin Globulin Albumin/Globulin Ratio Triglycerides 64 Cholesterol 140 LDL Cholesterol, Calc 77 VLDL Cholesterol, Calc 13 HDL Cholesterol 50 Cholesterol/HDL Ratio 2.8 25-OH Vitamin D Total TSH Urine Color Yellow Urine Appearance Clear Urine pH 6.0 Ur Specific [place] 1.025 Urine Protein Negative Urine Glucose (UA) Negative Urine Ketones Trace H Urine Blood Negative Urine Nitrite Negative Urine Bilirubin Negative Urine Urobilinogen Negative Ur Leukocyte Esterase Negative Salicylates Urine Opiates Screen Neg Ur Methadone, Qual Neg Acetaminophen Urine Barbiturates Neg Ur Phencyclidine (PCP) Neg U Amphetamin/Meth Scrn Neg MDMA (Ecstasy) Screen Neg U Benzodiazepines Scrn Neg Ur Cocaine Metabolite Neg U Marijuana (THC) Screen Neg Ethyl Alcohol mg/dL SARS-CoV-2, RNA, NAAT 01/21/23 08:33 WBC RBC Hgb Hct MCV MCH MCHC RDW Std Deviation RDW Coeff of Florentin Plt Count MPV Immature Gran % (Auto) Neut % (Auto) Lymph % (Auto) [place] % (Auto) Eos % (Auto) Baso % (Auto) Neut # (Auto) Lymph # (Auto) [place] # (Auto) Eos # (Auto) Baso # (Auto) Immature Gran # (Auto) Sodium Potassium Chloride Carbon Dioxide Anion Gap BUN Creatinine Est Cr Clr Drug Dosing Est GFR ( Amer) Est GFR (Non-Af Amer) BUN/Creatinine Ratio Glucose Fasting Glucose Calcium Total Bilirubin AST ALT Alkaline Phosphatase Total Protein Albumin Globulin Albumin/Globulin Ratio Triglycerides Cholesterol LDL Cholesterol, Calc VLDL Cholesterol, Calc HDL Cholesterol Cholesterol/HDL Ratio 25-OH Vitamin D Total 20.1 L TSH Urine Color Urine Appearance Urine pH Ur Specific [place] Urine Protein Urine Glucose (UA) Urine Ketones Urine Blood Urine Nitrite Urine Bilirubin Urine Urobilinogen Ur Leukocyte Esterase Salicylates Urine Opiates Screen Ur Methadone, Qual Acetaminophen Urine Barbiturates Ur Phencyclidine (PCP) U Amphetamin/Meth Scrn MDMA (Ecstasy) Screen U Benzodiazepines Scrn Ur Cocaine Metabolite U Marijuana (THC) Screen Ethyl Alcohol mg/dL SARS-CoV-2, RNA, NAAT Hospital Course (1) MDD (major depressive disorder), recurrent episode, severe: (2) Depression with suicidal ideation: (3) Deliberate self-cutting: (4) Autism spectrum disorder: (5) ADHD (attention deficit hyperactivity disorder): Plan 01/22/2023: Continue current medications and tx plan. 01/21/2023: Continue sertraline and abilify. Start Vit D supplementation. 01/20/2023: [facility] on q15 min checks (behavioral with suicide precautions) for safety. The patient will participate in group, recreational, and milieu therapies and will be offered additional individual and family sessions as clinically appropriate. -Increase sertraline to 100mg daily -Increase abilify to 5mg daily (4mg dose not available on hospital formulary) -Fasting lipid panel, glucose and Vit D level tomorrow AM Mental Health & Subst Abuse Tx Psychiatrist Name of Psychiatrist: [facility] - Dr. Reno Psychiatrist's Date Of Appointment With Psychiatric Provider: 02/05/23 Time of Appointment with Psychiatrist: 7:30 AM Psychiatric Appointment Comment: [address] [place] [address] Therapist Name of Therapist: [facility] - Marian Greenwood LCSW Therapist's Date of Therapist Appointment: 01/26/23 Time of Therapist Appointment: 8:15 AM Therapy Appointment Comment: Telehealth - complete all paperwork via Ph[employer]ia prior to appointment Post Discharge Appointments Primary Care Physician Name Of Family Doctor/PCP: [facility] - Courtney Pepe Primary Care Date of Future Appointment with PCP: 02/11/23 Time of Appointment with PCP: 7:45 AM Provider Appointment Comment: [address] [place] [address] Contact Information Discharge Discharge Address: [address] [place] [address] Discharge Plan Discharge Items Patient Disposition: Home - Self-Care Reason For Visit: UNESPECIFIED MOOD DISORDER Discharge Diagnosis: Major Depressive Disorder, recurrent Activity: Resume your previous activity Non-emergency contact: Primary Care Provider, Psychiatrist and Therapist Call non-emergency contact if: you have any medication questions and your symptoms worsen Follow-up/Referrals: Courtney Pepe CRNP [Primary Care Provider] - Diet: Regular Addtl Attending Provider Instructions: Optional mobile apps we discussed: -Suicide safety plan -Virtual Hope Box SPECIAL CARE INSTRUCTIONS: 1. Follow through with your scheduled aftercare appointments. If unable to keep an appointment, please call to reschedule. 2. Take your medication only as prescribed. Medication should not be changed or stopped without the approval of your doctor. In the event of worsening symptoms or concerns about side effects, contact your doctor immediately. 3. Utilize new healthy coping skills, anger management skills, and stress management skills learned during your hospitalization. Journal feelings and process them with a support person. Identify stressors or situations that may result in relapse, deterioration or inappropriate behaviors and develop a plan to deal with those issues. 4. If your coping skills are ineffective and you are in crisis, contact your outpatient providers for direction. If unable to reach your providers, please call the [facility] CRISIS LINE AT , go to the [facility] walk-in center at [address], [address], [place], or go to the closest Emergency Room. 5. Avoid alcohol and un-prescribed drugs. 6. You have been provided with the Mental Health Advance Directives Pamphlet for your review. 7. Your condition is stable for discharge to outpatient level of care, but recovery is an ongoing process. Ifthoughts to harm yourself or others return, follow the safety plan developed during your stay. Planning for a safe return home includes securing weapons. Our treatment team recommends weaponsbe removed from the home until your outpatient provider reassesses your progress. In rare cases where the items themselvescannot be removed, guns and ammunitionshould be secured separatelyand keys stored by a reliable personoutside of the home. If you were admitted on an involuntary commitment, the police or other legal authorities may be involved in this process. AFTERCARE APPOINTMENTS: * Please call your insurance company prior to your scheduled appointment to confirm your aftercare providers are covered. Take your insurance information to your appointments. WHO TO CALL AND WHEN: Medical Emergencies: For questions or emergencies related to your hospital stay, please contact the Inpatient Behavioral Health Unit at [phone]. A public relations assistant is on-call 05/01 for the Behavioral Health Unit for emergencies At any time you feel your situation is an emergency, you may also call 911 immediately. [place] Crisis Line: 394 Pending Studies at Discharge: No Stand-Alone Forms: My [facility], Smoking Cessation Medications and DC Order Prescriptions: New sertraline 100 mg Tablet 100 mg PO DAILY 30 Days Qty: 30 0RF aripiprazole [Abilify] 5 mg Tablet 5 mg PO DAILY 30 Days Qty: 30 0RF cholecalciferol (vitamin D3) 25 mcg (1,000 unit) Capsule 1,000 unit PO QAM 30 Days Qty: 30 0RF Continued hydroxyzine HCl 25 mg tablet 25 mg PO HS PRN (Reason: Insomnia) Discontinued sertraline 100 mg tablet 50 mg PO DAILY aripiprazole 2 mg tablet 4 mg PO DAILY ergocalciferol (vitamin D2) 1,250 mcg (50,000 unit) capsule 50,000 unit PO WK Discharge Orders: Discharge Order (Routine); Ordered 01/23/23 Ordered By: Suni Elias Admission Data Admit Date/Time: 01/19/23 12:17 Attending Provider: Suni Elias Admit Provider: Suni Elias Primary Care Provider: Courtney Pepe Other Interventions: Discharge Summary Assessment (RN) Last Done: 01/23/23 12:51 PSY Interdisciplinary Discharge Planning Last Done: 01/23/23 13:07 Coding Level of Care Code 33797 D/C day mgmt > 30 min Diagnoses MDD (major depressive disorder), recurrent episode, severe F33.2 Depression with suicidal ideation F32.A; R45.851 Deliberate self-cutting Z72.89 Autism spectrum disorder F84.0 ADHD (attention deficit hyperactivity disorder) F90.9 Time Spent (min) 36
== END 2023-01-23 14:23 | disposition home or self-care (01) | DRG 885 ==
LOC: ED 09:32 → 3S 12:17 → ED 12:38